=== PATIENT | female | born 1945 | race Caucasian/White ===

== ENCOUNTER → 2016-07-08 | Outpatient (CLI) | payer MEDICARE ==
[~2016-07-08] MED LIST: ACET-1757 PO; ACID1GRA2 PO; ALPR0.5T6 PO; AMLO5TAB2 PO; ATOR40TA78 PO; BILBERRY PO; BIOT10004 PO; BISA10SU2 PR; CARV12.52 PO; CARV3.122 PO; CLOP75TA PO; CYAN100028 PO; DOCU100C8 PO; DOXA2TAB9 PO; ERGO500017 PO; FERR324T18 PO; FERR325T16 PO; FURO-92 PO; FURO-93 PO; FURO20TA3 PO; FURO40TA6 PO; GLIM1TAB PO; GLIM2TAB2 PO; GLIP5TAB10 PO; HEPA500024 SC; HYDR-3138 PO; HYDR-3343 PO; INSU100V5 SQ-INSULIN; LABE100T3 PO; LABE300T PO; LINE600T37 PO; LISI40TA PO; LOSA100T6 PO; MAGN250T8 PO; MAGN400T26 PO; MAGNESIUM PO; METF10002 PO; METH32TA PO; METH4TAB2 PO; OMEP-110 PO; OXYC5TAB3 PO; POLY17PO5 PO; POTA10TA PO; POTA20PA PO; PRED5TAB PO; PRED5TAB27 PO; PYRI100T2 PO; SODI650T PO; UBID100C24 PO; VANC1VIA3 IV; VITA10004 PO
== END | disposition home or self-care (01) ==
LOC: RAD 10:02
PROVIDERS: ATTEND Otolaryngology
DX: J95.5 Postprocedural subglottic stenosis (principal); I65.29 Occlusion and stenosis of unspecified carotid artery
CPT/HCPCS: 70490

== ENCOUNTER → 2016-10-22 | Outpatient (CLI) | payer MEDICARE | END | disposition home or self-care (01) | LOC: CFH 14:42 | PROVIDERS: ATTEND Podiatrist Foot & Ankle Surgery | DX: Z00.01 Encounter for general adult medical examination with abnormal findings (principal); R79.89 Other specified abnormal findings of blood chemistry | CPT/HCPCS: 36415; 85025; 85651; 86140 ==

== ENCOUNTER → 2016-10-22 | Outpatient (CLI) | payer MEDICARE | END | disposition home or self-care (01) | LOC: WOUND 12:44 | PROVIDERS: ATTEND Podiatrist Foot & Ankle Surgery | DX: E11.621 Type 2 diabetes mellitus with foot ulcer (principal); L97.521 Non-pressure chronic ulcer of other part of left foot limited to breakdown of skin; L97.511 Non-pressure chronic ulcer of other part of right foot limited to breakdown of skin; E11.40 Type 2 diabetes mellitus with diabetic neuropathy, unspecified; E11.51 Type 2 diabetes mellitus with diabetic peripheral angiopathy without gangrene; E78.5 Hyperlipidemia, unspecified; I11.0 Hypertensive heart disease with heart failure; I50.30 Unspecified diastolic (congestive) heart failure; E11.69 Type 2 diabetes mellitus with other specified complication; M86.171 Other acute osteomyelitis, right ankle and foot; M19.071 Primary osteoarthritis, right ankle and foot | CPT/HCPCS: 11043; 11044; G0463; WOU0463 ==

== ENCOUNTER → 2016-10-26 | Outpatient (CLI) | payer MEDICARE | END | disposition home or self-care (01) | LOC: RAD 09:09 | PROVIDERS: ATTEND Physician Assistant | DX: M19.071 Primary osteoarthritis, right ankle and foot (principal); S91.101A Unspecified open wound of right great toe without damage to nail, initial encounter; E11.69 Type 2 diabetes mellitus with other specified complication; M25.771 Osteophyte, right ankle; X58.XXXA Exposure to other specified factors, initial encounter; Y93.89 Activity, other specified; Y92.89 Other specified places as the place of occurrence of the external cause; Y99.8 Other external cause status ==

== ENCOUNTER → 2016-10-29 | Outpatient (CLI) | payer MEDICARE | END | disposition home or self-care (01) | LOC: WOUND 10:30 | PROVIDERS: ATTEND Podiatrist Foot & Ankle Surgery | DX: E11.621 Type 2 diabetes mellitus with foot ulcer (principal); L97.511 Non-pressure chronic ulcer of other part of right foot limited to breakdown of skin; L97.521 Non-pressure chronic ulcer of other part of left foot limited to breakdown of skin; E11.69 Type 2 diabetes mellitus with other specified complication; M86.171 Other acute osteomyelitis, right ankle and foot; E11.40 Type 2 diabetes mellitus with diabetic neuropathy, unspecified; I11.0 Hypertensive heart disease with heart failure; I50.30 Unspecified diastolic (congestive) heart failure; E11.51 Type 2 diabetes mellitus with diabetic peripheral angiopathy without gangrene; E78.5 Hyperlipidemia, unspecified; I25.10 Atherosclerotic heart disease of native coronary artery without angina pectoris; M19.071 Primary osteoarthritis, right ankle and foot; Z86.711 Personal history of pulmonary embolism | CPT/HCPCS: 11044; 97597 ==

== ENCOUNTER → 2016-10-29 | Outpatient (CLI) | payer MEDICARE | END | disposition home or self-care (01) | LOC: CFH 12:22 | PROVIDERS: ATTEND Podiatrist Foot & Ankle Surgery | DX: M86.171 Other acute osteomyelitis, right ankle and foot (principal); E11.9 Type 2 diabetes mellitus without complications | CPT/HCPCS: 71020 ==

== ENCOUNTER → 2016-11-03 | Outpatient (CLI) | payer MEDICARE | END | disposition home or self-care (01) | LOC: WOUND 12:59 | PROVIDERS: ATTEND Nurse Practitioner Family | DX: E11.621 Type 2 diabetes mellitus with foot ulcer (principal); L97.511 Non-pressure chronic ulcer of other part of right foot limited to breakdown of skin; L97.521 Non-pressure chronic ulcer of other part of left foot limited to breakdown of skin; E11.69 Type 2 diabetes mellitus with other specified complication; M86.08 Acute hematogenous osteomyelitis, other sites; E11.22 Type 2 diabetes mellitus with diabetic chronic kidney disease; I13.0 Hypertensive heart and chronic kidney disease with heart failure and stage 1 through stage 4 chronic kidney disease, or unspecified chronic kidney disease; N18.4 Chronic kidney disease, stage 4 (severe); I50.30 Unspecified diastolic (congestive) heart failure; E11.40 Type 2 diabetes mellitus with diabetic neuropathy, unspecified; E11.51 Type 2 diabetes mellitus with diabetic peripheral angiopathy without gangrene; E78.5 Hyperlipidemia, unspecified; I25.10 Atherosclerotic heart disease of native coronary artery without angina pectoris; E11.21 Type 2 diabetes mellitus with diabetic nephropathy; Z86.711 Personal history of pulmonary embolism; M19.071 Primary osteoarthritis, right ankle and foot | CPT/HCPCS: 11044; 87070; 87205 ==

== ENCOUNTER → 2016-11-03 | Outpatient (CLI) | payer MEDICARE ==
[2016-11-03 15:27] LABS: ASPARTATE AMINO TRANSFERASE 16 U/L (15-37); BLOOD UREA NITROGEN 62 mg/dL (7-18); C-REACTIVE PROTEIN, QUANT 0.42 mg/dL (0.02-0.49)
== END | disposition home or self-care (01) ==
LOC: CFH 14:15
PROVIDERS: ATTEND Nurse Practitioner Family
DX: M86.171 Other acute osteomyelitis, right ankle and foot (principal); E11.69 Type 2 diabetes mellitus with other specified complication; L03.039 Cellulitis of unspecified toe
CPT/HCPCS: 36415; 80053; 82550; 85025; 85651; 86140

== ENCOUNTER 2016-11-09 06:25 | Day surgery (SDC) | payer MEDICARE ==
[~2016-11-09] VITALS: Ht 167.6 cm; Wt 75.9 kg
[2016-11-09] MEDS ORDERED: CEFAZOLIN 1,000 MG IVPB ONE (07:30)
[2016-11-09 07:31] VITALS: BP 158/64
[2016-11-09] MEDS: CEFAZOLIN PMX 1GM/50ML 50 ML IVPB ONE ×2 (07:54→08:06)
[2016-11-09] MEDS ORDERED: PLEASE ENTER HEIGHT AND WEIGHT MC SCH (08:00)
[2016-11-09] MEDS: SODIUM CHLORIDE 0.9% 1,000 ML IV SCH ×2 (08:06→08:10)
[2016-11-09] MEDS ORDERED: FENTANYL PF 100 MCG/2ML ONE (08:33)
[2016-11-09] MEDS ORDERED: MIDAZOLAM 1 MG/ML, 5ML ONE (08:33)
[2016-11-09] MEDS ORDERED: NALOXONE 1 MG/ML, 2ML ONE (08:34)
[2016-11-09] MEDS ORDERED: FLUMAZENIL 0.1 MG/1 ML, 5ML ONE (08:34)
[2016-11-09] MEDS ORDERED: LIDOCAINE 1%, 20ML ONE (08:52)
[2016-11-09] MEDS ORDERED: CEFAZOLIN PMX 1GM/50ML 50 ML IV ONE (09:00)
== END 2016-11-09 10:45 ==
LOC: OUT 06:25
PROVIDERS: ATTEND Internal Medicine Infectious Disease
DX: Z45.2 Encounter for adjustment and management of vascular access device (principal); M86.28 Subacute osteomyelitis, other site; I27.2 Other secondary pulmonary hypertension; E11.22 Type 2 diabetes mellitus with diabetic chronic kidney disease; N18.9 Chronic kidney disease, unspecified; Z79.2 Long term (current) use of antibiotics; I12.9 Hypertensive chronic kidney disease with stage 1 through stage 4 chronic kidney disease, or unspecified chronic kidney disease; Z88.5 Allergy status to narcotic agent; Z86.14 Personal history of Methicillin resistant Staphylococcus aureus infection
CPT/HCPCS: 36558; 76937; 77001; 99156; 99157; C1751; J0690; J2250; J3010; J3490; J7030; J2310

== ENCOUNTER → 2016-11-12 | Outpatient (CLI) | payer MEDICARE | END | disposition home or self-care (01) | LOC: WOUND 09:20 | PROVIDERS: ATTEND Podiatrist Foot & Ankle Surgery | DX: E11.621 Type 2 diabetes mellitus with foot ulcer (principal); L97.521 Non-pressure chronic ulcer of other part of left foot limited to breakdown of skin; L97.511 Non-pressure chronic ulcer of other part of right foot limited to breakdown of skin; E11.69 Type 2 diabetes mellitus with other specified complication; M86.08 Acute hematogenous osteomyelitis, other sites; E11.40 Type 2 diabetes mellitus with diabetic neuropathy, unspecified; E11.22 Type 2 diabetes mellitus with diabetic chronic kidney disease; I13.0 Hypertensive heart and chronic kidney disease with heart failure and stage 1 through stage 4 chronic kidney disease, or unspecified chronic kidney disease; N18.4 Chronic kidney disease, stage 4 (severe); I50.30 Unspecified diastolic (congestive) heart failure; E11.51 Type 2 diabetes mellitus with diabetic peripheral angiopathy without gangrene; E78.5 Hyperlipidemia, unspecified; I25.10 Atherosclerotic heart disease of native coronary artery without angina pectoris; M19.071 Primary osteoarthritis, right ankle and foot; E11.21 Type 2 diabetes mellitus with diabetic nephropathy; Z79.2 Long term (current) use of antibiotics; Z86.711 Personal history of pulmonary embolism | CPT/HCPCS: 11042; 97597 ==

== ENCOUNTER → 2016-11-19 | Outpatient (CLI) | payer MEDICARE ==
[~2016-11-19] MED LIST changes: -ACID1GRA2 PO; +ACID1GRA3 PO; +DOCU100C33 PO; -DOCU100C8 PO; -HYDR-3138 PO; +HYDR-3237 PO
== END | disposition home or self-care (01) ==
LOC: WOUND 09:31
PROVIDERS: ATTEND Podiatrist Foot & Ankle Surgery
DX: E11.621 Type 2 diabetes mellitus with foot ulcer (principal); L97.511 Non-pressure chronic ulcer of other part of right foot limited to breakdown of skin; I25.10 Atherosclerotic heart disease of native coronary artery without angina pectoris; E11.21 Type 2 diabetes mellitus with diabetic nephropathy; E11.40 Type 2 diabetes mellitus with diabetic neuropathy, unspecified; E11.51 Type 2 diabetes mellitus with diabetic peripheral angiopathy without gangrene; E11.69 Type 2 diabetes mellitus with other specified complication; M86.08 Acute hematogenous osteomyelitis, other sites; M86.171 Other acute osteomyelitis, right ankle and foot; E78.5 Hyperlipidemia, unspecified; E11.22 Type 2 diabetes mellitus with diabetic chronic kidney disease; I13.0 Hypertensive heart and chronic kidney disease with heart failure and stage 1 through stage 4 chronic kidney disease, or unspecified chronic kidney disease; N18.4 Chronic kidney disease, stage 4 (severe); I50.30 Unspecified diastolic (congestive) heart failure; M19.071 Primary osteoarthritis, right ankle and foot; Z86.14 Personal history of Methicillin resistant Staphylococcus aureus infection; Z79.2 Long term (current) use of antibiotics
CPT/HCPCS: 11044

== ENCOUNTER → 2016-11-26 | Outpatient (CLI) | payer MEDICARE | END | disposition home or self-care (01) | LOC: WOUND 09:30 | PROVIDERS: ATTEND Podiatrist Foot & Ankle Surgery | DX: E11.621 Type 2 diabetes mellitus with foot ulcer (principal); L97.511 Non-pressure chronic ulcer of other part of right foot limited to breakdown of skin; E11.21 Type 2 diabetes mellitus with diabetic nephropathy; E11.69 Type 2 diabetes mellitus with other specified complication; M86.08 Acute hematogenous osteomyelitis, other sites; M86.171 Other acute osteomyelitis, right ankle and foot; I25.10 Atherosclerotic heart disease of native coronary artery without angina pectoris; E78.5 Hyperlipidemia, unspecified; E11.22 Type 2 diabetes mellitus with diabetic chronic kidney disease; I13.0 Hypertensive heart and chronic kidney disease with heart failure and stage 1 through stage 4 chronic kidney disease, or unspecified chronic kidney disease; N18.4 Chronic kidney disease, stage 4 (severe); I50.30 Unspecified diastolic (congestive) heart failure; E11.40 Type 2 diabetes mellitus with diabetic neuropathy, unspecified; M19.071 Primary osteoarthritis, right ankle and foot; E11.51 Type 2 diabetes mellitus with diabetic peripheral angiopathy without gangrene; Z99.2 Dependence on renal dialysis; Z86.14 Personal history of Methicillin resistant Staphylococcus aureus infection; Z86.711 Personal history of pulmonary embolism; Z79.4 Long term (current) use of insulin | CPT/HCPCS: 97597 ==

== ENCOUNTER → 2016-12-03 | Outpatient (CLI) | payer MEDICARE | END | disposition home or self-care (01) | LOC: WOUND 09:30 | PROVIDERS: ATTEND Podiatrist Foot & Ankle Surgery | DX: E11.621 Type 2 diabetes mellitus with foot ulcer (principal); L97.511 Non-pressure chronic ulcer of other part of right foot limited to breakdown of skin; E11.69 Type 2 diabetes mellitus with other specified complication; M86.08 Acute hematogenous osteomyelitis, other sites; M86.172 Other acute osteomyelitis, left ankle and foot; I25.10 Atherosclerotic heart disease of native coronary artery without angina pectoris; E11.22 Type 2 diabetes mellitus with diabetic chronic kidney disease; I13.0 Hypertensive heart and chronic kidney disease with heart failure and stage 1 through stage 4 chronic kidney disease, or unspecified chronic kidney disease; N18.4 Chronic kidney disease, stage 4 (severe); I50.30 Unspecified diastolic (congestive) heart failure; E78.5 Hyperlipidemia, unspecified; M19.071 Primary osteoarthritis, right ankle and foot; E11.21 Type 2 diabetes mellitus with diabetic nephropathy; E11.40 Type 2 diabetes mellitus with diabetic neuropathy, unspecified; E11.51 Type 2 diabetes mellitus with diabetic peripheral angiopathy without gangrene; Z79.2 Long term (current) use of antibiotics; Z86.14 Personal history of Methicillin resistant Staphylococcus aureus infection; Z86.711 Personal history of pulmonary embolism; Z99.2 Dependence on renal dialysis; Z79.4 Long term (current) use of insulin | CPT/HCPCS: 11720 ==

== ENCOUNTER 2016-12-29 06:17 | Day surgery (SDC) | payer MEDICARE ==
[~2016-12-29] VITALS: Ht 167.6 cm; Wt 79.3 kg
[2016-12-29 07:17] VITALS: BP 171/73
[2016-12-29] MEDS ORDERED: SODIUM CHLORIDE 0.9% 1,000 ML IV SCH (07:22)
[2016-12-29] MEDS ORDERED: FENTANYL PF 100 MCG/2ML ONE (07:58)
[2016-12-29] MEDS ORDERED: MIDAZOLAM 1 MG/ML, 5ML ONE ×2 (07:58)
[2016-12-29] MEDS ORDERED: FLUMAZENIL 0.1 MG/1 ML, 5ML ONE (07:59)
[2016-12-29] MEDS ORDERED: NALOXONE 1 MG/ML, 2ML ONE (07:59)
[2016-12-29] MEDS ORDERED: LIDOCAINE 1%, 20ML ONE (08:13)
== END 2016-12-29 11:15 ==
LOC: OUT 06:17
PROVIDERS: ATTEND Internal Medicine Nephrology
DX: I12.9 Hypertensive chronic kidney disease with stage 1 through stage 4 chronic kidney disease, or unspecified chronic kidney disease (principal); E11.22 Type 2 diabetes mellitus with diabetic chronic kidney disease; N18.9 Chronic kidney disease, unspecified; N17.9 Acute kidney failure, unspecified; R80.9 Proteinuria, unspecified; F41.9 Anxiety disorder, unspecified; E78.5 Hyperlipidemia, unspecified; Z98.890 Other specified postprocedural states
CPT/HCPCS: 36415; 50200; 77012; 82962; 85610; 88300; 99156; 99157; J2250; J3010; J3490; J2310

== ENCOUNTER 2017-01-02 15:35 | Inpatient (IN) | payer MEDICARE ==
[2017-01-02] VITALS (10 sets, daily range): BP systolic 157–178; BP diastolic 45–74
[~2017-01-02] VITALS: Ht 167.6 cm; Wt 82.5 kg
[2017-01-02] MEDS ORDERED: SODIUM CHLORIDE FLUSH 10ML SYR IVF ONE (16:30)
[2017-01-02] MEDS ORDERED: SODIUM CHLORIDE 0.9% 1,000ML IVBOLUS ONE (16:30)
[2017-01-02 16:44] LABS: WHITE BLOOD COUNT 12.5 x10^3/uL (3.4-10)
[2017-01-02 16:45] LABS: HEMOGLOBIN 6.2 g/dL (11.7-16.4)
[2017-01-02 16:47] LABS: ASPARTATE AMINO TRANSFERASE 27 U/L (15-37); BLOOD UREA NITROGEN 76 mg/dL (7-18)
[2017-01-02 16:53] LABS: IS PT STATUS REG ER OR PRE ER? YES
[2017-01-02 17:03] LABS: POLYCHROMASIA 1+; SPHEROCYTES 1+
[2017-01-02] MEDS ORDERED: FUROSEMIDE 20 MG/2 ML IV ONE (20:00)
[2017-01-02] MEDS ORDERED: LABETALOL 5MG/ML, 20ML IVPush PRN (20:00)
[2017-01-02] MEDS ORDERED: ACETAMINOPHEN 325 MG TABLET PO PRN (20:00)
[2017-01-02] MEDS ORDERED: TEMAZEPAM 15 MG CAPSULE PO PRN (20:00)
[2017-01-02] MEDS ORDERED: DOCUSATE 100 MG CAPSULE PO PRN (20:00)
[2017-01-02] MEDS: INSULIN ASPART 100 UNITS/ML, PEN SQ-INSULIN SCH (20:56)
[2017-01-02 22:47] LABS: IS PT STATUS REG ER OR PRE ER? NO
[2017-01-03 00:15] VITALS: BP 151/64
[2017-01-03 02:19] LABS: HEMATOCRIT 23.6 % (34.6-47.8); WHITE BLOOD COUNT 11.9 x10^3/uL (3.4-10)
[2017-01-03 03:02] VITALS: BP 161/56
[2017-01-03 04:58] LABS: HEMOGLOBIN 7.9 g/dL (11.7-16.4); WHITE BLOOD COUNT 11.4 x10^3/uL (3.4-10)
[2017-01-03 05:04] LABS: BLOOD UREA NITROGEN 82 mg/dL (7-18); TOTAL IRON BINDING CAPACITY 165 mcg/dL (250-450)
[2017-01-03 05:09] LABS: IS PT STATUS REG ER OR PRE ER? NO
[2017-01-03 05:30] LABS: FERRITIN 513.7 ng/mL (8-252)
[2017-01-03 06:40] VITALS: BP 165/67
[2017-01-03] MEDS: INSULIN ASPART 100 UNITS/ML, PEN SQ-INSULIN SCH ×4 (07:00→21:18)
[2017-01-03] MEDS ORDERED: LABETALOL 300 MG TABLET PO SCH (09:30)
[2017-01-03] MEDS ORDERED: CLOPIDOGREL 75 MG TABLET PO ONE (11:00)
[2017-01-03] MEDS ORDERED: CLOPIDOGREL 75 MG TABLET ONE (12:21)
[2017-01-03 12:26] VITALS: BP 172/74
[2017-01-03 13:45] LABS: C-REACTIVE PROTEIN, QUANT 8.9 mg/dL (0.02-0.49)
[2017-01-03 14:07] VITALS: BP 170/76
[2017-01-03] MEDS: ISOSORBIDE DINITRATE 10 MG TABLET PO SCH ×2 (14:07→21:15)
[2017-01-03] MEDS: ERTAPENEM 0.5 GM in SODIUM CHLORIDE 0.9% 50 ML IV SCH (14:07)
[2017-01-03 14:29] LABS: IS PT STATUS REG ER OR PRE ER? NO
[2017-01-03] MEDS ORDERED: ARANESP 100 MCG/ML **ESRD SQ SCH (14:30)
[2017-01-03 14:32] LABS: FERRITIN 646.6 ng/mL (8-252)
[2017-01-03 14:43] LABS: PTH INTACT INTERPRETATION ** Comment **
[2017-01-03] MEDS: SODIUM CHLORIDE 0.9% IVPB SCH (15:22)
[2017-01-03] MEDS: DAPTOMYCIN IVPB SCH (15:22)
[2017-01-03 15:27] LABS: PARATHYROID HORMONE INTACT 341.8 pg/mL (14-72)
[2017-01-03] MEDS ORDERED: ISOSORBIDE DINITRATE 10 MG TABLET PO SCH (16:00)
[2017-01-03 20:40] VITALS: BP 154/84
[2017-01-03] MEDS ORDERED: LABETALOL 100 MG TABLET PO SCH (21:00)
[2017-01-03] MEDS: ATORVASTATIN 40 MG TABLET PO SCH ×2 (21:00→21:16)
[2017-01-03] MEDS: SODIUM BICARBONATE 650 MG TABLET PO SCH (21:15)
[2017-01-03] MEDS: AMLODIPINE 5 MG TABLET PO SCH (21:16)
[2017-01-04] VITALS (7 sets, daily range): BP systolic 119–161; BP diastolic 59–76
[2017-01-04 04:58] LABS: HEMOGLOBIN 7.9 g/dL (11.7-16.4); WHITE BLOOD COUNT 9.2 x10^3/uL (3.4-10)
[2017-01-04 05:08] LABS: HEMATOCRIT 22.9 % (34.6-47.8)
[2017-01-04 05:17] LABS: ASPARTATE AMINO TRANSFERASE 26 U/L (15-37); BLOOD UREA NITROGEN 77 mg/dL (7-18)
[2017-01-04] MEDS: ISOSORBIDE DINITRATE 10 MG TABLET PO SCH ×3 (06:03→20:48)
[2017-01-04] MEDS: INSULIN ASPART 100 UNITS/ML, PEN SQ-INSULIN SCH ×4 (07:00→20:48)
[2017-01-04] MEDS: LABETALOL 300 MG TABLET PO SCH (08:46)
[2017-01-04] MEDS: AMLODIPINE 5 MG TABLET PO SCH ×2 (08:46→20:48)
[2017-01-04] MEDS: SODIUM BICARBONATE 650 MG TABLET PO SCH (08:47)
[2017-01-04] MEDS ORDERED: CLOPIDOGREL 75 MG TABLET PO SCH ×2 (09:00)
[2017-01-04] MEDS ORDERED: morphine SULFATE 10 MG/ML, 1ML IVPush ONE (15:00)
[2017-01-04] MEDS: CALCITRIOL 0.25 MCG CAPSULE PO SCH (15:11)
[2017-01-04] MEDS: ERTAPENEM 0.5 GM in SODIUM CHLORIDE 0.9% 50 ML IV SCH (15:12)
[2017-01-04] MEDS: ATORVASTATIN 40 MG TABLET PO SCH (20:48)
[2017-01-04] MEDS: LABETALOL 100 MG TABLET PO SCH (21:00)
[2017-01-05 01:46] VITALS: BP 154/70
[2017-01-05 04:53] LABS: HEMATOCRIT 23.2 % (34.6-47.8); HEMOGLOBIN 7.9 g/dL (11.7-16.4); WHITE BLOOD COUNT 8.6 x10^3/uL (3.4-10)
[2017-01-05 05:05] LABS: BLOOD UREA NITROGEN 72 mg/dL (7-18)
[2017-01-05 05:09] LABS: ASPARTATE AMINO TRANSFERASE 18 U/L (15-37)
[2017-01-05] MEDS: ISOSORBIDE DINITRATE 10 MG TABLET PO SCH ×3 (05:22→20:44)
[2017-01-05] MEDS: INSULIN ASPART 100 UNITS/ML, PEN SQ-INSULIN SCH ×4 (07:51→20:38)
[2017-01-05 08:06] VITALS: BP 152/70
[2017-01-05] MEDS: CALCITRIOL 0.25 MCG CAPSULE PO SCH (08:19)
[2017-01-05] MEDS: LABETALOL 300 MG TABLET PO SCH (08:19)
[2017-01-05] MEDS: AMLODIPINE 5 MG TABLET PO SCH ×2 (08:19→20:42)
[2017-01-05] MEDS: ERTAPENEM 0.5 GM in SODIUM CHLORIDE 0.9% 50 ML IV SCH ×2 (16:45→18:09)
[2017-01-05 16:59] VITALS: BP 162/66
[2017-01-05 20:19] VITALS: BP 190/78
[2017-01-05] MEDS: DAPTOMYCIN IVPB SCH (20:32)
[2017-01-05] MEDS: SODIUM CHLORIDE 0.9% IVPB SCH (20:32)
[2017-01-05] MEDS: ATORVASTATIN 40 MG TABLET PO SCH (20:43)
[2017-01-05] MEDS: LABETALOL 100 MG TABLET PO SCH (20:43)
[2017-01-06 01:15] VITALS: BP 168/66
[2017-01-06 04:42] LABS: HEMATOCRIT 23.8 % (34.6-47.8); HEMOGLOBIN 8.2 g/dL (11.7-16.4); WHITE BLOOD COUNT 7.9 x10^3/uL (3.4-10)
[2017-01-06 04:56] LABS: BLOOD UREA NITROGEN 47 mg/dL (7-18)
[2017-01-06 05:02] LABS: ASPARTATE AMINO TRANSFERASE 14 U/L (15-37)
[2017-01-06] MEDS: INSULIN ASPART 100 UNITS/ML, PEN SQ-INSULIN SCH ×4 (06:17→20:57)
[2017-01-06] MEDS: ISOSORBIDE DINITRATE 10 MG TABLET PO SCH ×3 (06:21→20:57)
[2017-01-06] MEDS: LABETALOL 300 MG TABLET PO SCH (08:30)
[2017-01-06] MEDS: AMLODIPINE 5 MG TABLET PO SCH ×2 (08:30→20:58)
[2017-01-06] MEDS: CALCITRIOL 0.25 MCG CAPSULE PO SCH (08:30)
[2017-01-06 08:31] VITALS: BP 169/67
[2017-01-06 08:53] VITALS: BP 150/69
[2017-01-06 10:18] LABS: ANA SCREEN NEGATIVE (Negative)
[2017-01-06 13:20] VITALS: BP 119/51
[2017-01-06 19:43] VITALS: BP 157/72
[2017-01-06] MEDS: ATORVASTATIN 40 MG TABLET PO SCH (20:58)
[2017-01-06] MEDS: LABETALOL 100 MG TABLET PO SCH (20:58)
[2017-01-07 03:29] VITALS: BP 131/69
[2017-01-07 04:57] LABS: HEMATOCRIT 25.6 % (34.6-47.8); HEMOGLOBIN 8.6 g/dL (11.7-16.4); WHITE BLOOD COUNT 8.4 x10^3/uL (3.4-10)
[2017-01-07 05:10] LABS: BLOOD UREA NITROGEN 35 mg/dL (7-18)
[2017-01-07 05:14] LABS: ASPARTATE AMINO TRANSFERASE 14 U/L (15-37)
[2017-01-07] MEDS: INSULIN ASPART 100 UNITS/ML, PEN SQ-INSULIN SCH ×4 (06:02→21:00)
[2017-01-07] MEDS: ISOSORBIDE DINITRATE 10 MG TABLET PO SCH ×3 (06:04→21:45)
[2017-01-07 07:31] VITALS: BP 107/59
[2017-01-07] MEDS: LABETALOL 300 MG TABLET PO SCH (07:32)
[2017-01-07] MEDS: CALCITRIOL 0.25 MCG CAPSULE PO SCH (07:32)
[2017-01-07] MEDS: AMLODIPINE 5 MG TABLET PO SCH ×2 (07:32→21:45)
[2017-01-07] MEDS ORDERED: FENTANYL PF 100 MCG/2ML ONE (13:12)
[2017-01-07] MEDS ORDERED: CEFAZOLIN 1,000 MG ONE (13:12)
[2017-01-07] MEDS ORDERED: SUCCINYLCHOLINE 20 MG/ML, 10ML ONE (13:12)
[2017-01-07] MEDS ORDERED: ONDANSETRON 2MG/ML, 2ML ONE (13:12)
[2017-01-07] MEDS ORDERED: GLYCOPYRROLATE 0.2MG/1ML, 5ML ONE (13:12)
[2017-01-07] MEDS ORDERED: ROCURONIUM 10 MG/ML ONE (13:12)
[2017-01-07] MEDS ORDERED: HYDROmorphone 1 MG/ML, 1ML ONE (13:12)
[2017-01-07] MEDS ORDERED: PROPOFOL 10 MG/ML, 20ML ONE (13:12)
[2017-01-07] MEDS ORDERED: MIDAZOLAM 1 MG/ML, 2ML ONE (13:12)
[2017-01-07] MEDS ORDERED: NEOSTIGMINE 1 MG/ML, 10ML ONE (13:12)
[2017-01-07] MEDS ORDERED: DEXAMETHASONE 4 MG/ML, 1ML ONE (13:12)
[2017-01-07 13:53] VITALS: BP 160/73
[2017-01-07] MEDS ORDERED: BUPIVACAINE/PF 0.5% ONE (13:54)
[2017-01-07] MEDS ORDERED: HEPARIN 1,000 UNITS/ML, 10ML ONE ×2 (13:55→16:16)
[2017-01-07] MEDS ORDERED: EPINEPHRINE 1 MG/ML, 1ML ONE (13:55)
[2017-01-07] MEDS ORDERED: THROMBIN 5,000 UNIT VIAL TP ONE (13:55)
[2017-01-07] MEDS ORDERED: PROTAMINE SULFATE 10 MG/ML, 5ML ONE (13:55)
[2017-01-07] MEDS ORDERED: VASOPRESSIN 20 UNIT/ML, 1ML ONE (15:15)
[2017-01-07] MEDS ORDERED: OXYcodone 5 MG/5 ML ORAL.SOL UDC PO PRN (16:00)
[2017-01-07] MEDS ORDERED: LABETALOL 5MG/ML, 20ML IV PRN (16:00)
[2017-01-07] MEDS ORDERED: FENTANYL PF 100 MCG/2ML IV PRN (16:00)
[2017-01-07] MEDS ORDERED: ONDANSETRON 2MG/ML, 2ML IVPush PRN (16:00)
[2017-01-07] MEDS ORDERED: HYDROmorphone 1 MG/ML, 1ML IV PRN (16:00)
[2017-01-07] MEDS ORDERED: HYDROcodone/APAP 7.5-325MG/15ML UDC PO PRN (16:00)
[2017-01-07 18:39] VITALS: BP 167/71
[2017-01-07] MEDS: LABETALOL 100 MG TABLET PO SCH (20:48)
[2017-01-07] MEDS: ATORVASTATIN 40 MG TABLET PO SCH (21:45)
[2017-01-08 02:26] VITALS: BP 133/55
[2017-01-08 05:36] LABS: HEMOGLOBIN 9.4 g/dL (11.7-16.4); WHITE BLOOD COUNT 10.7 x10^3/uL (3.4-10)
[2017-01-08 05:43] LABS: BLOOD UREA NITROGEN 50 mg/dL (7-18)
[2017-01-08 05:48] VITALS: BP 158/62
[2017-01-08] MEDS: ISOSORBIDE DINITRATE 10 MG TABLET PO SCH ×3 (05:49→20:59)
[2017-01-08 08:35] VITALS: BP 139/59
[2017-01-08] MEDS: CALCITRIOL 0.25 MCG CAPSULE PO SCH (08:42)
[2017-01-08] MEDS: INSULIN ASPART 100 UNITS/ML, PEN SQ-INSULIN SCH ×4 (08:42→20:59)
[2017-01-08] MEDS: AMLODIPINE 5 MG TABLET PO SCH ×2 (09:00→20:58)
[2017-01-08] MEDS: INSULIN DETEMIR 100 UNITS/ML, PEN SQ-INSULIN SCH ×2 (09:30→20:48)
[2017-01-08] MEDS: LABETALOL 300 MG TABLET PO SCH (12:05)
[2017-01-08 13:31] VITALS: BP 142/62
[2017-01-08 20:50] VITALS: BP 130/56
[2017-01-08] MEDS: ATORVASTATIN 40 MG TABLET PO SCH (20:58)
[2017-01-08] MEDS: LABETALOL 100 MG TABLET PO SCH (22:02)
[2017-01-09 02:30] VITALS: BP 118/49
[2017-01-09 05:24] LABS: HEMOGLOBIN 8.7 g/dL (11.7-16.4); WHITE BLOOD COUNT 12.6 x10^3/uL (3.4-10)
[2017-01-09] MEDS: ISOSORBIDE DINITRATE 10 MG TABLET PO SCH ×2 (05:33→14:05)
[2017-01-09 05:39] LABS: BLOOD UREA NITROGEN 45 mg/dL (7-18)
[2017-01-09 05:44] LABS: ASPARTATE AMINO TRANSFERASE 14 U/L (15-37)
[2017-01-09] MEDS: INSULIN ASPART 100 UNITS/ML, PEN SQ-INSULIN SCH ×2 (07:00→11:00)
[2017-01-09 07:01] VITALS: BP 120/53
[2017-01-09] MEDS: AMLODIPINE 5 MG TABLET PO SCH (08:49)
[2017-01-09] MEDS: CALCITRIOL 0.25 MCG CAPSULE PO SCH (08:49)
[2017-01-09] MEDS: LABETALOL 300 MG TABLET PO SCH (08:50)
[2017-01-09] MEDS: INSULIN DETEMIR 100 UNITS/ML, PEN SQ-INSULIN SCH (09:30)
[2017-01-09] MEDS ORDERED: CALC0.25 PO (10:26)
[2017-01-09] MEDS ORDERED: AMLO5TAB2 PO (10:26)
[2017-01-09] MEDS ORDERED: ISOS10TA2 PO (10:26)
[2017-01-09] MEDS ORDERED: HYDR-3341 PO (10:26)
[2017-01-09 14:21] VITALS: BP 118/53
== END 2017-01-09 15:22 | disposition home or self-care (01) | DRG 673 ==
LOC: ED 17:05 → EDIP 17:10 → 3NW 18:19 → 5SO 01-03 10:06 → 4WST 01-07 18:26
PROVIDERS: ADMIT Internal Medicine; ATTEND Internal Medicine
PROC: 30233N1 Transfusion of Nonautologous Red Blood Cells into Peripheral Vein, Percutaneous Approach (ICD-10-PCS; principal; 2017-01-02)
PROC: 02HV33Z Insertion of Infusion Device into Superior Vena Cava, Percutaneous Approach (ICD-10-PCS; 2017-01-04)
PROC: 02PY33Z Removal of Infusion Device from Great Vessel, Percutaneous Approach (ICD-10-PCS; 2017-01-07)
PROC: 0JH63XZ Insertion of Tunneled Vascular Access Device into Chest Subcutaneous Tissue and Fascia, Percutaneous Approach (ICD-10-PCS; 2017-01-07)
PROC: 02HV33Z Insertion of Infusion Device into Superior Vena Cava, Percutaneous Approach (ICD-10-PCS; 2017-01-07)
PROC: 03180ZD Bypass Left Brachial Artery to Upper Arm Vein, Open Approach (ICD-10-PCS; 2017-01-07 14:30)
DX: N17.9 Acute kidney failure, unspecified (principal); J96.00 Acute respiratory failure, unspecified whether with hypoxia or hypercapnia; E43 Unspecified severe protein-calorie malnutrition; I13.2 Hypertensive heart and chronic kidney disease with heart failure and with stage 5 chronic kidney disease, or end stage renal disease; M86.171 Other acute osteomyelitis, right ankle and foot; Z93.0 Tracheostomy status; D62 Acute posthemorrhagic anemia; E87.2 Acidosis; I50.32 Chronic diastolic (congestive) heart failure; N18.6 End stage renal disease; R13.10 Dysphagia, unspecified; D63.1 Anemia in chronic kidney disease; E11.51 Type 2 diabetes mellitus with diabetic peripheral angiopathy without gangrene; E11.621 Type 2 diabetes mellitus with foot ulcer; E11.69 Type 2 diabetes mellitus with other specified complication; E78.5 Hyperlipidemia, unspecified; I65.29 Occlusion and stenosis of unspecified carotid artery; H35.30 Unspecified macular degeneration; I16.0 Hypertensive urgency; I34.0 Nonrheumatic mitral (valve) insufficiency; K21.9 Gastro-esophageal reflux disease without esophagitis; L97.519 Non-pressure chronic ulcer of other part of right foot with unspecified severity; Z83.1 Family history of other infectious and parasitic diseases; Z83.3 Family history of diabetes mellitus; Z86.14 Personal history of Methicillin resistant Staphylococcus aureus infection; E11.21 Type 2 diabetes mellitus with diabetic nephropathy
CPT/HCPCS: 36415; 36556; 71020; 74150; 76937; 77001; 80048; 80053; 80061; 80069; 80074; 81001; 82306; 82310; 82550; 82607; 82728; 82746; 82962; 83036; 83540; 83550; 83605; 83735; 83880; 83970; 84100; 84439; 84443; 84484; 84550; 85025; 85027; 85045; 85610; 85651; 86038; 86140; 86235; 86480; 86706; 86850; 86900; 86923; 87086; 93005; 93306; 93922; 93925; 99285; C1894; J0171; J0690; J0878; J0882; J1100; J1170; J1335; J1644; J1815; J2250; J2405; J2704; J2710; J2720; J3010; J3490; C1751; G0365; J0330; J1642; J1940; P9016

== ENCOUNTER → 2018-03-07 | Outpatient (CLI) | payer MEDICARE ==
[~2018-03-07] MED LIST changes: +AMLO-150 PO; -AMLO5TAB2 PO; +CALC0.25 PO; +HYDR-3341 PO; +ISOS10TA2 PO; -LABE100T3 PO; +LABE100T6 PO; -LABE300T PO; +LABE300T2 PO; -LOSA100T6 PO; +LOSA100T7 PO; -POTA20PA PO; +POTA20PA31 PO
== END | disposition home or self-care (01) ==
LOC: CVU 14:12
PROVIDERS: ATTEND Internal Medicine Cardiovascular Disease
DX: I65.23 Occlusion and stenosis of bilateral carotid arteries (principal); I10 Essential (primary) hypertension; E11.9 Type 2 diabetes mellitus without complications; E78.5 Hyperlipidemia, unspecified
CPT/HCPCS: 93880

== ENCOUNTER 2018-04-06 09:53 | Outpatient (CLI) | payer MEDICARE ==
[~2018-04-06 09:53] MED LIST changes: +LOSA100T14 PO; -LOSA100T7 PO
== END 2018-04-06 23:59 | disposition home or self-care (01) ==
LOC: WOUND 09:53
PROVIDERS: ATTEND Internal Medicine
DX: E11.621 Type 2 diabetes mellitus with foot ulcer (principal); L97.514 Non-pressure chronic ulcer of other part of right foot with necrosis of bone; E11.69 Type 2 diabetes mellitus with other specified complication; M86.071 Acute hematogenous osteomyelitis, right ankle and foot; E11.40 Type 2 diabetes mellitus with diabetic neuropathy, unspecified; E11.51 Type 2 diabetes mellitus with diabetic peripheral angiopathy without gangrene; E78.5 Hyperlipidemia, unspecified; I25.10 Atherosclerotic heart disease of native coronary artery without angina pectoris; E11.22 Type 2 diabetes mellitus with diabetic chronic kidney disease; I13.2 Hypertensive heart and chronic kidney disease with heart failure and with stage 5 chronic kidney disease, or end stage renal disease; N18.6 End stage renal disease; I50.42 Chronic combined systolic (congestive) and diastolic (congestive) heart failure; F41.9 Anxiety disorder, unspecified; K21.9 Gastro-esophageal reflux disease without esophagitis; Z89.421 Acquired absence of other right toe(s); Z86.711 Personal history of pulmonary embolism; Z86.73 Personal history of transient ischemic attack (TIA), and cerebral infarction without residual deficits; Z99.2 Dependence on renal dialysis
CPT/HCPCS: 11044; 87070; 87077; 87186; 87205; 97597; G0463; 11047

== ENCOUNTER 2018-04-07 14:39 | Inpatient (IN) | payer MEDICARE ==
[~2018-04-07] VITALS: Ht 167.6 cm; Wt 65.3 kg
--- NOTE | 2018-04-07 14:59 | NUR ---
Pt states that she has an infection in her right 2nd toe, she does not know how it started, but she states that she went to her doctor last week and was told that the infection is "in the bone." Pt c/o pain and swelling to the toe. Pt states that she has had fever/chills today. Pt had dialysis today.
[2018-04-07 15:13] LABS: BASOPHILS # (AUTO) 0.05 x10^3/uL (0-0.1); BASOPHILS % (AUTO) 1 % (0-1); EOSINOPHILS # (AUTO) 0.05 x10^3/uL (0-0.4); EOSINOPHILS % (AUTO) 1 % (1-7); HCT (SEDRATE) 28.9 % (34.6-47.8); LYMPHOCYTES # (AUTO) 1.82 x10^3/uL (1-3.4); LYMPHOCYTES % (AUTO) 18 % (22-44); MD NO; MEAN CORPUSCULAR HEMOGLOBIN 29.9 pg (27.0-34.8); MEAN CORPUSCULAR HGB CONC 33.1 g/dL (32.4-35.8); MEAN CORPUSCULAR VOLUME 90.3 fL (80-100); MONOCYTES # (AUTO) 0.64 x10^3/uL (0.2-0.8); MONOCYTES % (AUTO) 6 % (2-9); NEUTROPHILS % (AUTO) 75 % (42-75); PLATELET COUNT 391 x10^3/uL (130-400); RED BLOOD COUNT 3.21 x10^6/uL (3.82-5.3); RED CELL DISTRIBUTION WIDTH 14.8 % (9.6-15.2)
--- NOTE | 2018-04-07 15:23 | NUR ---
XR at bedside.
[2018-04-07 15:24] LABS: ANION GAP 6 mmol/L (5-15); CALCIUM 8.4 mg/dL (8.5-10.1); CHLORIDE 98 mmol/L (98-107); CREATININE 1.82 mg/dL (0.55-1.02)
--- NOTE | 2018-04-07 15:29 | NUR ---
Dr. Griggs at bedside to evaluate pt.
[2018-04-07] MEDS ORDERED: VANCOMYCIN PER PHARMACY MC PRN ×2 (16:00→18:00)
[2018-04-07] MEDS ORDERED: VANCOMYCIN 1,400 MG in SODIUM CHLORIDE 0.9% 250 ML IV ONE (16:00)
[2018-04-07] MEDS ORDERED: AMPICILLIN/SULBACTAM 3 GM in SODIUM CHLORIDE 0.9% 100 ML IV ONE (16:00)
--- NOTE | 2018-04-07 16:25 | NUR ---
PIV started, pt ambulated to bathroom, no assistance required. IV ABX started, blood cultures x 2 drawn.
--- NOTE | 2018-04-07 17:01 | NUR ---
Telephone SBAR report given to Gladis FULLER. Admitting MD in room to evaluate pt. Pt will be made aware of new room assignment.
[2018-04-07 17:40] VITALS: BP 160/85
[2018-04-07] MEDS ORDERED: HYDROcodone/APAP 5/325 TABLET PO PRN (18:00)
[2018-04-07] MEDS ORDERED: ONDANSETRON 2MG/ML, 2ML IVPush PRN (18:00)
[2018-04-07] MEDS ORDERED: hydrALAzine 20 MG/ML, 1ML IVPush PRN (18:00)
[2018-04-07] MEDS ORDERED: morphine SULFATE 10 MG/ML, 1ML IVPush PRN (18:00)
[2018-04-07] MEDS ORDERED: PHARMACOKINETIC CONSULTATION MC ONE ×2 (18:00)
[2018-04-07] MEDS ORDERED: PHARMACOKINETIC MONITORING MC PRN ×2 (18:00)
[2018-04-07 18:14] LABS: HEMOGLOBIN A1C 7.6 % (4.2-6.3)
[2018-04-07 19:17] VITALS: BP 193/49
[2018-04-07] MEDS: ATORVASTATIN 40 MG TABLET PO SCH (20:25)
[2018-04-07] MEDS: AMLODIPINE 5 MG TABLET PO SCH (20:25)
[2018-04-07] MEDS: LABETALOL 300 MG TABLET PO SCH (20:27)
[2018-04-07] MEDS ORDERED: AMPICILLIN/SULBACTAM 3 GM in SODIUM CHLORIDE 0.9% 100 ML IV SCH (22:30)
[2018-04-07] MEDS: INSULIN LISPRO 100 UNITS/ML, PEN SQ-INSULIN SCH (23:35)
[2018-04-08 01:20] VITALS: BP 154/68
[2018-04-08] MEDS: ACETAMINOPHEN 325 MG TABLET PO PRN ×2 (01:29→13:52)
[2018-04-08] MEDS: AMPICILLIN/SULBACTAM 3 GM in SODIUM CHLORIDE 0.9% 100 ML IV SCH ×2 (04:29→15:47)
[2018-04-08 05:31] LABS: ANION GAP 7 mmol/L (5-15); CALCIUM 7.7 mg/dL (8.5-10.1); CHLORIDE 107 mmol/L (98-107)
[2018-04-08 05:33] LABS: BASOPHILS % (AUTO) 0 % (0-1); EOSINOPHILS # (AUTO) 0.04 x10^3/uL (0-0.4); EOSINOPHILS % (AUTO) 0 % (1-7); LYMPHOCYTES # (AUTO) 0.48 x10^3/uL (1-3.4); LYMPHOCYTES % (AUTO) 5 % (22-44); MD NO; MEAN CORPUSCULAR HEMOGLOBIN 30.5 pg (27.0-34.8); MEAN CORPUSCULAR HGB CONC 33.6 g/dL (32.4-35.8); MEAN CORPUSCULAR VOLUME 90.9 fL (80-100); MEAN PLATELET VOLUME 8.3 fL (7.4-10.4); MONOCYTES % (AUTO) 8 % (2-9); NEUTROPHILS # (AUTO) 8.28 x10^3/uL (1.8-6.8); NEUTROPHILS % (AUTO) 86 % (42-75); PLATELET COUNT 291 x10^3/uL (130-400); RED BLOOD COUNT 2.56 x10^6/uL (3.82-5.3); RED CELL DISTRIBUTION WIDTH 14.6 % (9.6-15.2)
[2018-04-08 05:34] LABS: CREATININE 3.03 mg/dL (0.55-1.02); VANCOMYCIN,RANDOM 19.9 mcg/mL
[2018-04-08] MEDS: INSULIN LISPRO 100 UNITS/ML, PEN SQ-INSULIN SCH ×4 (07:00→20:45)
[2018-04-08] MEDS: CLOPIDOGREL 75 MG TABLET PO SCH (07:43)
[2018-04-08 08:00] VITALS: BP 115/56
[2018-04-08] MEDS: OMEPRAZOLE 20 MG CAPSULE.DR PO SCH (08:27)
[2018-04-08] MEDS: LABETALOL 300 MG TABLET PO SCH ×2 (08:27→20:42)
[2018-04-08] MEDS: AMLODIPINE 5 MG TABLET PO SCH ×2 (08:27→20:42)
[2018-04-08] MEDS: FERROUS GLUCONATE 324 MG TABLET PO SCH (08:27)
[2018-04-08 13:05] VITALS: BP 134/61
[2018-04-08] MEDS ORDERED: DARBEPOETIN 100 MCG/ML SQ SCH (13:30)
[2018-04-08] MEDS ORDERED: MIDAZOLAM 1 MG/ML, 2ML ONE (17:27)
[2018-04-08] MEDS ORDERED: FENTANYL PF 250 MCG/5ML ONE (17:27)
[2018-04-08] MEDS ORDERED: NEOSTIGMINE 1 MG/ML, 10ML ONE (17:39)
[2018-04-08] MEDS ORDERED: ONDANSETRON 2MG/ML, 2ML ONE (18:02)
[2018-04-08] MEDS ORDERED: PROPOFOL 10 MG/ML, 20ML ONE (18:02)
[2018-04-08] MEDS ORDERED: LIDOCAINE-MPF 2% ,5ML ONE (18:02)
[2018-04-08] MEDS ORDERED: ROCURONIUM 10MG/ML,5ML ONE (18:02)
[2018-04-08] MEDS ORDERED: DEXAMETHASONE 4 MG/ML, 1ML ONE (18:02)
[2018-04-08] MEDS ORDERED: HYDROmorphone 2 MG/ML, 1ML IVPush PRN (18:30)
[2018-04-08] MEDS ORDERED: OXYcodone 5 MG/5 ML ORAL.SOL UDC PO PRN (18:30)
[2018-04-08] MEDS ORDERED: ACETAMINOPHEN 325 MG TABLET PO PRN (18:30)
[2018-04-08] MEDS ORDERED: hydrALAzine 20 MG/ML, 1ML IV PRN (18:30)
[2018-04-08] MEDS ORDERED: MEPERIDINE/PF 25MG/0.5ML IVPush PRN (18:30)
[2018-04-08] MEDS ORDERED: HALOPERIDOL 5 MG/ML IV PRN (18:30)
[2018-04-08] MEDS ORDERED: PROMETHAZINE 25 MG/ML, 1ML IV PRN (18:30)
[2018-04-08] MEDS ORDERED: FENTANYL PF 100 MCG/2ML IV PRN (18:30)
[2018-04-08] MEDS: ATORVASTATIN 40 MG TABLET PO SCH (20:42)
[2018-04-08 21:10] VITALS: BP 127/55
[2018-04-09 00:36] VITALS: BP 113/58
[2018-04-09 05:41] LABS: CHLORIDE 102 mmol/L (98-107)
[2018-04-09 06:06] LABS: ALBUMIN 2.3 g/dL (3.4-5.0); ANION GAP 11 mmol/L (5-15); CALCIUM 7.9 mg/dL (8.5-10.1); CREATINE KINASE, TOTAL 58 U/L (26-192); CREATININE 4.12 mg/dL (0.55-1.02)
[2018-04-09] MEDS: INSULIN LISPRO 100 UNITS/ML, PEN SQ-INSULIN SCH ×4 (07:00→20:49)
[2018-04-09] MEDS: OMEPRAZOLE 20 MG CAPSULE.DR PO SCH (07:30)
[2018-04-09 07:54] VITALS: BP 130/66
[2018-04-09] MEDS: CLOPIDOGREL 75 MG TABLET PO SCH (08:04)
[2018-04-09] MEDS: AMLODIPINE 5 MG TABLET PO SCH ×2 (08:04→20:49)
[2018-04-09] MEDS: FERROUS GLUCONATE 324 MG TABLET PO SCH (08:04)
[2018-04-09] MEDS: LABETALOL 300 MG TABLET PO SCH ×2 (08:05→20:49)
[2018-04-09 12:42] VITALS: BP 149/58
[2018-04-09] MEDS: AMPICILLIN/SULBACTAM 3 GM in SODIUM CHLORIDE 0.9% 100 ML IV SCH (14:48)
[2018-04-09] MEDS ORDERED: VANCOMYCIN 1,400 MG in SODIUM CHLORIDE 0.9% 250 ML IV ONE (15:00)
[2018-04-09 20:43] VITALS: BP 113/53
[2018-04-09] MEDS: ATORVASTATIN 40 MG TABLET PO SCH (20:49)
[2018-04-09] MEDS: TEMAZEPAM 15 MG CAPSULE PO PRN (23:57)
[2018-04-09] MEDS: ARTIFICIAL TEARS 15 DROP/ML BOTTLE EACHEYE PRN (23:58)
[2018-04-10 03:59] VITALS: BP 107/54
[2018-04-10 05:31] LABS: MEAN CORPUSCULAR HEMOGLOBIN 29.9 pg (27.0-34.8); MEAN CORPUSCULAR HGB CONC 33.1 g/dL (32.4-35.8); MEAN CORPUSCULAR VOLUME 90.4 fL (80-100); MEAN PLATELET VOLUME 8.5 fL (7.4-10.4); PLATELET COUNT 281 x10^3/uL (130-400); RED BLOOD COUNT 2.41 x10^6/uL (3.82-5.3); RED CELL DISTRIBUTION WIDTH 14.9 % (9.6-15.2)
[2018-04-10 05:37] LABS: ANION GAP 8 mmol/L (5-15); CALCIUM 7.6 mg/dL (8.5-10.1); CHLORIDE 102 mmol/L (98-107); CREATININE 3.05 mg/dL (0.55-1.02)
[2018-04-10 06:40] LABS: BASOPHILS # (AUTO) 0.02 x10^3/uL (0-0.1); BASOPHILS % (AUTO) 0 % (0-1); EOSINOPHILS # (AUTO) 0.44 x10^3/uL (0-0.4); EOSINOPHILS % (AUTO) 4 % (1-7); LYMPHOCYTES # (AUTO) 0.93 x10^3/uL (1-3.4); LYMPHOCYTES % (AUTO) 9 % (22-44); MD SCAN; MONOCYTES # (AUTO) 0.58 x10^3/uL (0.2-0.8); MONOCYTES % (AUTO) 6 % (2-9); NEUTROPHILS # (AUTO) 8.01 x10^3/uL (1.8-6.8); NEUTROPHILS % (AUTO) 80 % (42-75)
[2018-04-10] MEDS: OMEPRAZOLE 20 MG CAPSULE.DR PO SCH (08:18)
[2018-04-10] MEDS: INSULIN LISPRO 100 UNITS/ML, PEN SQ-INSULIN SCH ×4 (08:23→21:01)
[2018-04-10 08:40] VITALS: BP 148/68
[2018-04-10] MEDS: FERROUS GLUCONATE 324 MG TABLET PO SCH (09:14)
[2018-04-10] MEDS: LABETALOL 300 MG TABLET PO SCH ×2 (09:15→20:56)
[2018-04-10] MEDS: AMLODIPINE 5 MG TABLET PO SCH ×2 (09:15→20:57)
[2018-04-10] MEDS: CLOPIDOGREL 75 MG TABLET PO SCH (09:15)
[2018-04-10] MEDS: ARTIFICIAL TEARS 15 DROP/ML BOTTLE EACHEYE PRN (09:25)
[2018-04-10 13:23] VITALS: BP 157/62
[2018-04-10] MEDS: AMPICILLIN/SULBACTAM 3 GM in SODIUM CHLORIDE 0.9% 100 ML IV SCH (14:34)
[2018-04-10 20:00] VITALS: BP 146/68
[2018-04-10] MEDS: ATORVASTATIN 40 MG TABLET PO SCH (20:57)
[2018-04-11] VITALS (7 sets, daily range): BP systolic 123–155; BP diastolic 38–66
[2018-04-11] MEDS ORDERED: FUROSEMIDE 40 MG/4 ML IV ONE (00:30)
[2018-04-11] MEDS: INSULIN LISPRO 100 UNITS/ML, PEN SQ-INSULIN SCH ×4 (07:00→21:00)
[2018-04-11] MEDS: OMEPRAZOLE 20 MG CAPSULE.DR PO SCH (09:10)
[2018-04-11] MEDS: CLOPIDOGREL 75 MG TABLET PO SCH (09:10)
[2018-04-11] MEDS: AMLODIPINE 5 MG TABLET PO SCH ×2 (09:10→21:09)
[2018-04-11] MEDS: LABETALOL 300 MG TABLET PO SCH ×2 (09:11→21:15)
[2018-04-11] MEDS: FERROUS GLUCONATE 324 MG TABLET PO SCH (09:11)
[2018-04-11] MEDS ORDERED: CATHFLO-ALTEPLASE 2 MG/2 ML CATHFLUSH ONE ×2 (10:30)
[2018-04-11] MEDS ORDERED: OMNIPAQUE 350 MG/ML, 100ML BOTTLE ONE (12:07)
[2018-04-11] MEDS: AMPICILLIN/SULBACTAM 3 GM in SODIUM CHLORIDE 0.9% 100 ML IV SCH (21:09)
[2018-04-11] MEDS: ATORVASTATIN 40 MG TABLET PO SCH (21:09)
[2018-04-12 00:17] VITALS: BP 119/50
[2018-04-12 02:40] VITALS: BP 146/56
[2018-04-12 04:55] VITALS: BP 117/66
[2018-04-12 06:02] LABS: ALBUMIN 2.4 g/dL (3.4-5.0); ANION GAP 7 mmol/L (5-15); CALCIUM 7.6 mg/dL (8.5-10.1); CHLORIDE 97 mmol/L (98-107)
[2018-04-12 06:06] LABS: % IRON SATURATION 18 % (20-55); ALANINE AMINOTRANSFERASE 15 U/L (12-78); ALKALINE PHOSPHATASE 71 U/L (45-117); BILIRUBIN,TOTAL 0.8 mg/dL (0.2-1.0); CREATININE 2.64 mg/dL (0.55-1.02); IRON LEVEL 25 mcg/dL (50-170); TOTAL IRON BINDING CAPACITY 141 mcg/dL (250-450); TOTAL PROTEIN 6.5 g/dL (6.4-8.2)
[2018-04-12 06:11] LABS: MEAN CORPUSCULAR HEMOGLOBIN 29.9 pg (27.0-34.8); MEAN CORPUSCULAR HGB CONC 33.1 g/dL (32.4-35.8); MEAN CORPUSCULAR VOLUME 90.3 fL (80-100); MEAN PLATELET VOLUME 8.5 fL (7.4-10.4); PLATELET COUNT 269 x10^3/uL (130-400); RED BLOOD COUNT 2.49 x10^6/uL (3.82-5.3); RED CELL DISTRIBUTION WIDTH 14.8 % (9.6-15.2)
[2018-04-12 06:31] LABS: BASOPHILS # (AUTO) 0.02 x10^3/uL (0-0.1); BASOPHILS % (AUTO) 0 % (0-1); EOSINOPHILS # (AUTO) 0.28 x10^3/uL (0-0.4); EOSINOPHILS % (AUTO) 4 % (1-7); LYMPHOCYTES # (AUTO) 1.19 x10^3/uL (1-3.4); LYMPHOCYTES % (AUTO) 17 % (22-44); MD SCAN; MONOCYTES # (AUTO) 0.53 x10^3/uL (0.2-0.8); MONOCYTES % (AUTO) 8 % (2-9); NEUTROPHILS % (AUTO) 71 % (42-75)
[2018-04-12] MEDS: INSULIN LISPRO 100 UNITS/ML, PEN SQ-INSULIN SCH ×4 (07:00→21:00)
[2018-04-12 08:05] VITALS: BP 134/63
[2018-04-12] MEDS: OMEPRAZOLE 20 MG CAPSULE.DR PO SCH (08:57)
[2018-04-12] MEDS: AMLODIPINE 5 MG TABLET PO SCH ×2 (08:57→21:56)
[2018-04-12] MEDS: LABETALOL 300 MG TABLET PO SCH ×2 (08:57→21:00)
[2018-04-12] MEDS: FERROUS GLUCONATE 324 MG TABLET PO SCH (08:57)
[2018-04-12] MEDS: CLOPIDOGREL 75 MG TABLET PO SCH (08:57)
[2018-04-12] MEDS ORDERED: LIDOCAINE-MPF 1%, 5ML ONE (11:31)
[2018-04-12] MEDS ORDERED: NITROGLYCERIN 5 MG/ML, 10ML ONE (11:34)
[2018-04-12] MEDS ORDERED: FLUMAZENIL 0.1 MG/1 ML, 5ML ONE (11:34)
[2018-04-12] MEDS ORDERED: FENTANYL PF 100 MCG/2ML ONE (11:34)
[2018-04-12] MEDS ORDERED: MIDAZOLAM 1 MG/ML, 5ML ONE (11:34)
[2018-04-12] MEDS ORDERED: PROTAMINE SULFATE 10 MG/ML, 25ML ONE (11:35)
[2018-04-12] MEDS ORDERED: HEPARIN 1,000 UNITS/ML, 10ML ONE (11:35)
[2018-04-12] MEDS ORDERED: NALOXONE 1 MG/ML, 2ML ONE (11:35)
[2018-04-12 13:12] VITALS: BP 130/46
[2018-04-12 21:04] VITALS: BP 127/62
[2018-04-12] MEDS: AMPICILLIN/SULBACTAM 3 GM in SODIUM CHLORIDE 0.9% 100 ML IV SCH (21:55)
[2018-04-12] MEDS: ATORVASTATIN 40 MG TABLET PO SCH (21:56)
[2018-04-13 01:23] VITALS: BP 135/55
[2018-04-13 05:13] LABS: HCT (SEDRATE) 24.2 % (34.6-47.8)
[2018-04-13 05:17] LABS: BASOPHILS # (AUTO) 0.04 x10^3/uL (0-0.1); BASOPHILS % (AUTO) 0 % (0-1); EOSINOPHILS # (AUTO) 0.38 x10^3/uL (0-0.4); EOSINOPHILS % (AUTO) 4 % (1-7); LYMPHOCYTES # (AUTO) 1.83 x10^3/uL (1-3.4); LYMPHOCYTES % (AUTO) 21 % (22-44); MD NO; MEAN CORPUSCULAR HEMOGLOBIN 30.4 pg (27.0-34.8); MEAN CORPUSCULAR HGB CONC 33.7 g/dL (32.4-35.8); MEAN CORPUSCULAR VOLUME 89.9 fL (80-100); MEAN PLATELET VOLUME 8.7 fL (7.4-10.4); MONOCYTES # (AUTO) 0.64 x10^3/uL (0.2-0.8); MONOCYTES % (AUTO) 7 % (2-9); NEUTROPHILS # (AUTO) 5.97 x10^3/uL (1.8-6.8); NEUTROPHILS % (AUTO) 67 % (42-75); PLATELET COUNT 289 x10^3/uL (130-400); RED BLOOD COUNT 2.67 x10^6/uL (3.82-5.3); RED CELL DISTRIBUTION WIDTH 14.9 % (9.6-15.2)
[2018-04-13 05:25] LABS: ALANINE AMINOTRANSFERASE 13 U/L (12-78); ALBUMIN 2.3 g/dL (3.4-5.0); ANION GAP 7 mmol/L (5-15); CALCIUM 7.7 mg/dL (8.5-10.1); CHLORIDE 100 mmol/L (98-107); CREATININE 2.99 mg/dL (0.55-1.02)
[2018-04-13 05:40] LABS: ALKALINE PHOSPHATASE 73 U/L (45-117); BILIRUBIN,TOTAL 0.6 mg/dL (0.2-1.0); TOTAL PROTEIN 6.5 g/dL (6.4-8.2)
[2018-04-13] MEDS: INSULIN LISPRO 100 UNITS/ML, PEN SQ-INSULIN SCH ×4 (07:00→21:00)
[2018-04-13 08:04] VITALS: BP 127/64
[2018-04-13] MEDS: CLOPIDOGREL 75 MG TABLET PO SCH ×2 (08:45→09:03)
[2018-04-13] MEDS: LABETALOL 300 MG TABLET PO SCH ×2 (09:03→22:17)
[2018-04-13] MEDS: OMEPRAZOLE 20 MG CAPSULE.DR PO SCH (09:03)
[2018-04-13] MEDS: AMLODIPINE 5 MG TABLET PO SCH ×2 (09:03→22:17)
[2018-04-13] MEDS: FERROUS GLUCONATE 324 MG TABLET PO SCH (09:03)
[2018-04-13] MEDS ORDERED: VANCOMYCIN 1,400 MG in SODIUM CHLORIDE 0.9% 250 ML IV ONE (12:00)
[2018-04-13 14:41] VITALS: BP 132/68
[2018-04-13] MEDS ORDERED: BISACODYL 10 MG SUPP PR PRN (17:30)
[2018-04-13] MEDS ORDERED: MAGNESIUM HYDROXIDE 8%, 30ML UDC PO PRN (17:30)
[2018-04-13] MEDS: DOCUSATE 100 MG CAPSULE PO SCH (21:00)
[2018-04-13] MEDS: ATORVASTATIN 40 MG TABLET PO SCH (22:17)
[2018-04-13] MEDS: AMPICILLIN/SULBACTAM 3 GM in SODIUM CHLORIDE 0.9% 100 ML IV SCH (22:18)
[2018-04-13] MEDS: ARTIFICIAL TEARS 15 DROP/ML BOTTLE EACHEYE PRN (22:26)
[2018-04-14] MEDS: TEMAZEPAM 15 MG CAPSULE PO PRN ×2 (02:45→22:53)
[2018-04-14 02:50] VITALS: BP 144/53
[2018-04-14 04:38] LABS: BASOPHILS # (AUTO) 0.04 x10^3/uL (0-0.1); BASOPHILS % (AUTO) 1 % (0-1); EOSINOPHILS # (AUTO) 0.27 x10^3/uL (0-0.4); EOSINOPHILS % (AUTO) 3 % (1-7); LYMPHOCYTES # (AUTO) 1.85 x10^3/uL (1-3.4); LYMPHOCYTES % (AUTO) 22 % (22-44); MD NO; MEAN CORPUSCULAR HEMOGLOBIN 29.1 pg (27.0-34.8); MEAN CORPUSCULAR HGB CONC 32.3 g/dL (32.4-35.8); MEAN PLATELET VOLUME 8.4 fL (7.4-10.4); MONOCYTES # (AUTO) 0.76 x10^3/uL (0.2-0.8); MONOCYTES % (AUTO) 9 % (2-9); NEUTROPHILS # (AUTO) 5.71 x10^3/uL (1.8-6.8); NEUTROPHILS % (AUTO) 66 % (42-75); PLATELET COUNT 310 x10^3/uL (130-400); RED BLOOD COUNT 2.83 x10^6/uL (3.82-5.3); RED CELL DISTRIBUTION WIDTH 14.6 % (9.6-15.2)
[2018-04-14 04:44] LABS: ANION GAP 9 mmol/L (5-15); CHLORIDE 100 mmol/L (98-107); CREATININE 3.04 mg/dL (0.55-1.02)
[2018-04-14] MEDS: INSULIN LISPRO 100 UNITS/ML, PEN SQ-INSULIN SCH ×4 (07:00→21:07)
[2018-04-14] MEDS: CLOPIDOGREL 75 MG TABLET PO SCH ×2 (07:32→08:12)
[2018-04-14 07:59] VITALS: BP 140/58
[2018-04-14] MEDS: FERROUS GLUCONATE 324 MG TABLET PO SCH (08:11)
[2018-04-14] MEDS: OMEPRAZOLE 20 MG CAPSULE.DR PO SCH (08:11)
[2018-04-14] MEDS: POLYETHYLENE GLYCOL 17 GM PACKET PO SCH (08:12)
[2018-04-14] MEDS: LABETALOL 300 MG TABLET PO SCH ×2 (08:12→20:42)
[2018-04-14] MEDS: DOCUSATE 100 MG CAPSULE PO SCH ×3 (08:12→20:48)
[2018-04-14] MEDS: AMLODIPINE 5 MG TABLET PO SCH ×2 (08:14→20:41)
[2018-04-14 14:02] VITALS: BP 138/63
[2018-04-14 18:32] VITALS: BP 134/60
[2018-04-14] MEDS: ATORVASTATIN 40 MG TABLET PO SCH (20:41)
[2018-04-14] MEDS: AMPICILLIN/SULBACTAM 3 GM in SODIUM CHLORIDE 0.9% 100 ML IV SCH (22:53)
[2018-04-15 04:00] VITALS: BP 121/38
[2018-04-15] MEDS: INSULIN LISPRO 100 UNITS/ML, PEN SQ-INSULIN SCH ×4 (07:00→20:47)
[2018-04-15] MEDS: DOCUSATE 100 MG CAPSULE PO SCH ×2 (07:37→20:46)
[2018-04-15] MEDS: POLYETHYLENE GLYCOL 17 GM PACKET PO SCH (07:37)
[2018-04-15] MEDS: AMLODIPINE 5 MG TABLET PO SCH ×2 (07:38→20:46)
[2018-04-15] MEDS: LABETALOL 300 MG TABLET PO SCH ×2 (07:38→20:46)
[2018-04-15] MEDS: CLOPIDOGREL 75 MG TABLET PO SCH ×2 (07:38)
[2018-04-15] MEDS: FERROUS GLUCONATE 324 MG TABLET PO SCH (07:38)
[2018-04-15 07:42] VITALS: BP 137/61
[2018-04-15] MEDS: OMEPRAZOLE 20 MG CAPSULE.DR PO SCH (07:44)
[2018-04-15 07:59] VITALS: BP 159/63
[2018-04-15] MEDS ORDERED: DARBEPOETIN 100 MCG/ML SQ SCH (13:09)
[2018-04-15 13:21] VITALS: BP 139/57
[2018-04-15] MEDS ORDERED: LIDOCAINE-MPF 1%, 5ML ONE (14:54)
[2018-04-15 18:45] VITALS: BP 136/50
[2018-04-15 20:47] VITALS: BP 120/50
[2018-04-15] MEDS: ATORVASTATIN 40 MG TABLET PO SCH (20:47)
[2018-04-15] MEDS: AMPICILLIN/SULBACTAM 3 GM in SODIUM CHLORIDE 0.9% 100 ML IV SCH (22:13)
[2018-04-16 04:00] VITALS: BP 133/56
[2018-04-16 07:52] VITALS: BP 164/52
[2018-04-16] MEDS: INSULIN LISPRO 100 UNITS/ML, PEN SQ-INSULIN SCH ×4 (07:56→21:19)
[2018-04-16] MEDS: OMEPRAZOLE 20 MG CAPSULE.DR PO SCH (07:56)
[2018-04-16] MEDS: CLOPIDOGREL 75 MG TABLET PO SCH ×2 (09:05→09:10)
[2018-04-16] MEDS: AMLODIPINE 5 MG TABLET PO SCH ×2 (09:06→21:07)
[2018-04-16] MEDS: LABETALOL 300 MG TABLET PO SCH ×2 (09:09→21:06)
[2018-04-16] MEDS: DOCUSATE 100 MG CAPSULE PO SCH ×2 (09:10→21:07)
[2018-04-16] MEDS: POLYETHYLENE GLYCOL 17 GM PACKET PO SCH (09:10)
[2018-04-16] MEDS: FERROUS GLUCONATE 324 MG TABLET PO SCH (09:10)
[2018-04-16 09:11] VITALS: BP 127/62
[2018-04-16 13:59] VITALS: BP 120/61
[2018-04-16 20:00] VITALS: BP 152/57
[2018-04-16] MEDS: ATORVASTATIN 40 MG TABLET PO SCH (21:07)
[2018-04-16] MEDS: AMPICILLIN/SULBACTAM 3 GM in SODIUM CHLORIDE 0.9% 100 ML IV SCH (22:21)
[2018-04-16] MEDS: TEMAZEPAM 15 MG CAPSULE PO PRN (22:21)
[2018-04-17 02:00] VITALS: BP 159/68
[2018-04-17 05:58] LABS: BASOPHILS # (AUTO) 0.06 x10^3/uL (0-0.1); BASOPHILS % (AUTO) 1 % (0-1); EOSINOPHILS # (AUTO) 0.26 x10^3/uL (0-0.4); EOSINOPHILS % (AUTO) 3 % (1-7); LYMPHOCYTES # (AUTO) 2.53 x10^3/uL (1-3.4); LYMPHOCYTES % (AUTO) 31 % (22-44); MD NO; MEAN CORPUSCULAR HEMOGLOBIN 30.6 pg (27.0-34.8); MEAN CORPUSCULAR VOLUME 89.9 fL (80-100); MEAN PLATELET VOLUME 8.4 fL (7.4-10.4); MONOCYTES # (AUTO) 0.67 x10^3/uL (0.2-0.8); MONOCYTES % (AUTO) 8 % (2-9); NEUTROPHILS # (AUTO) 4.66 x10^3/uL (1.8-6.8); NEUTROPHILS % (AUTO) 57 % (42-75); PLATELET COUNT 324 x10^3/uL (130-400); RED BLOOD COUNT 2.74 x10^6/uL (3.82-5.3); RED CELL DISTRIBUTION WIDTH 15.1 % (9.6-15.2)
[2018-04-17 06:08] LABS: ANION GAP 9 mmol/L (5-15); CALCIUM 8.2 mg/dL (8.5-10.1); CHLORIDE 103 mmol/L (98-107); CREATININE 5.02 mg/dL (0.55-1.02)
[2018-04-17 06:09] LABS: VANCOMYCIN,RANDOM 17.8 mcg/mL
[2018-04-17] MEDS: INSULIN LISPRO 100 UNITS/ML, PEN SQ-INSULIN SCH ×4 (07:55→21:08)
[2018-04-17] MEDS: OMEPRAZOLE 20 MG CAPSULE.DR PO SCH (07:55)
[2018-04-17 08:08] VITALS: BP 132/61
[2018-04-17] MEDS: AMLODIPINE 5 MG TABLET PO SCH ×2 (09:25→21:09)
[2018-04-17] MEDS: FERROUS GLUCONATE 324 MG TABLET PO SCH (09:25)
[2018-04-17] MEDS: CLOPIDOGREL 75 MG TABLET PO SCH ×2 (09:25→09:26)
[2018-04-17] MEDS: LABETALOL 300 MG TABLET PO SCH ×2 (09:26→21:09)
[2018-04-17] MEDS: POLYETHYLENE GLYCOL 17 GM PACKET PO SCH (09:26)
[2018-04-17] MEDS: DOCUSATE 100 MG CAPSULE PO SCH ×2 (09:26→21:00)
[2018-04-17] MEDS ORDERED: VANCOMYCIN 1,400 MG in SODIUM CHLORIDE 0.9% 250 ML IV ONE (13:00)
[2018-04-17 13:44] VITALS: BP 129/70
[2018-04-17 20:00] VITALS: BP 148/65
[2018-04-17] MEDS: ATORVASTATIN 40 MG TABLET PO SCH (21:08)
[2018-04-17] MEDS: TEMAZEPAM 15 MG CAPSULE PO PRN (21:08)
[2018-04-17] MEDS: AMPICILLIN/SULBACTAM 3 GM in SODIUM CHLORIDE 0.9% 100 ML IV SCH (22:27)
[2018-04-18 02:00] VITALS: BP 157/61
[2018-04-18 06:01] LABS: ALBUMIN 2.7 g/dL (3.4-5.0); ANION GAP 10 mmol/L (5-15); C-REACTIVE PROTEIN, QUANT 0.91 mg/dL (0.02-0.49); CALCIUM 8.2 mg/dL (8.5-10.1); CHLORIDE 105 mmol/L (98-107); CREATININE 5.35 mg/dL (0.55-1.02)
[2018-04-18 06:42] LABS: BASOPHILS # (AUTO) 0.06 x10^3/uL (0-0.1); BASOPHILS % (AUTO) 1 % (0-1); EOSINOPHILS # (AUTO) 0.25 x10^3/uL (0-0.4); EOSINOPHILS % (AUTO) 3 % (1-7); LYMPHOCYTES # (AUTO) 1.96 x10^3/uL (1-3.4); LYMPHOCYTES % (AUTO) 24 % (22-44); MD NO; MEAN CORPUSCULAR HGB CONC 33.6 g/dL (32.4-35.8); MEAN CORPUSCULAR VOLUME 89.3 fL (80-100); MEAN PLATELET VOLUME 8.5 fL (7.4-10.4); MONOCYTES # (AUTO) 0.61 x10^3/uL (0.2-0.8); MONOCYTES % (AUTO) 7 % (2-9); NEUTROPHILS # (AUTO) 5.31 x10^3/uL (1.8-6.8); NEUTROPHILS % (AUTO) 65 % (42-75); PLATELET COUNT 316 x10^3/uL (130-400); RED BLOOD COUNT 2.81 x10^6/uL (3.82-5.3); RED CELL DISTRIBUTION WIDTH 15.3 % (9.6-15.2)
[2018-04-18 06:46] LABS: HCT (SEDRATE) 25.1 % (34.6-47.8)
[2018-04-18 08:00] VITALS: BP 137/65
[2018-04-18] MEDS: INSULIN LISPRO 100 UNITS/ML, PEN SQ-INSULIN SCH ×4 (08:07→21:33)
[2018-04-18] MEDS: CLOPIDOGREL 75 MG TABLET PO SCH ×2 (08:07→08:08)
[2018-04-18] MEDS: AMLODIPINE 5 MG TABLET PO SCH ×2 (08:07→21:32)
[2018-04-18] MEDS: FERROUS GLUCONATE 324 MG TABLET PO SCH (08:07)
[2018-04-18] MEDS: OMEPRAZOLE 20 MG CAPSULE.DR PO SCH (08:07)
[2018-04-18] MEDS: DOCUSATE 100 MG CAPSULE PO SCH ×2 (08:08→21:00)
[2018-04-18] MEDS: LABETALOL 300 MG TABLET PO SCH ×2 (08:08→21:32)
[2018-04-18] MEDS: POLYETHYLENE GLYCOL 17 GM PACKET PO SCH (08:08)
[2018-04-18 12:52] VITALS: BP 132/67
[2018-04-18 20:00] VITALS: BP 147/65
[2018-04-18] MEDS: ATORVASTATIN 40 MG TABLET PO SCH (21:32)
[2018-04-18] MEDS: DOXYCYCLINE 100MG TABLET PO SCH (21:32)
[2018-04-18] MEDS: TEMAZEPAM 15 MG CAPSULE PO PRN (21:36)
[2018-04-19 02:00] VITALS: BP 140/55
[2018-04-19] MEDS: INSULIN LISPRO 100 UNITS/ML, PEN SQ-INSULIN SCH ×4 (07:00→21:19)
[2018-04-19] MEDS: OMEPRAZOLE 20 MG CAPSULE.DR PO SCH (07:30)
[2018-04-19 07:50] VITALS: BP 131/62
[2018-04-19] MEDS: LABETALOL 300 MG TABLET PO SCH ×2 (08:23→21:18)
[2018-04-19] MEDS: POLYETHYLENE GLYCOL 17 GM PACKET PO SCH (09:00)
[2018-04-19] MEDS: DOCUSATE 100 MG CAPSULE PO SCH ×2 (09:00→21:00)
[2018-04-19] MEDS ORDERED: MIDAZOLAM 1 MG/ML, 5ML ONE (10:59)
[2018-04-19] MEDS ORDERED: FENTANYL PF 100 MCG/2ML ONE (10:59)
[2018-04-19] MEDS ORDERED: LIDOCAINE-MPF 1%, 5ML ONE (11:05)
[2018-04-19] MEDS: AMLODIPINE 5 MG TABLET PO SCH ×2 (12:53→21:18)
[2018-04-19] MEDS: FERROUS GLUCONATE 324 MG TABLET PO SCH (12:53)
[2018-04-19] MEDS: CLOPIDOGREL 75 MG TABLET PO SCH (12:54)
[2018-04-19] MEDS: DOXYCYCLINE 100MG TABLET PO SCH (12:54)
[2018-04-19 13:23] VITALS: BP 137/49
[2018-04-19 20:00] VITALS: BP 105/58
[2018-04-19] MEDS: ATORVASTATIN 40 MG TABLET PO SCH (21:18)
[2018-04-20 00:19] VITALS: BP 147/55
[2018-04-20] MEDS: TEMAZEPAM 15 MG CAPSULE PO PRN (01:25)
[2018-04-20 07:40] VITALS: BP 121/57
[2018-04-20] MEDS ORDERED: LIDOCAINE-MPF 1%, 5ML ONE (07:49)
[2018-04-20] MEDS ORDERED: CIPROFLOXACIN 500 MG TABLET PO SCH (09:00)
[2018-04-20] MEDS: POLYETHYLENE GLYCOL 17 GM PACKET PO SCH (09:00)
[2018-04-20] MEDS: DOCUSATE 100 MG CAPSULE PO SCH (09:00)
[2018-04-20] MEDS: INSULIN LISPRO 100 UNITS/ML, PEN SQ-INSULIN SCH ×3 (09:10→17:43)
[2018-04-20] MEDS: CLOPIDOGREL 75 MG TABLET PO SCH (09:10)
[2018-04-20] MEDS: AMLODIPINE 5 MG TABLET PO SCH (09:11)
[2018-04-20] MEDS: OMEPRAZOLE 20 MG CAPSULE.DR PO SCH (09:11)
[2018-04-20] MEDS: FERROUS GLUCONATE 324 MG TABLET PO SCH (09:11)
[2018-04-20] MEDS: LABETALOL 300 MG TABLET PO SCH (09:11)
[2018-04-20] MEDS ORDERED: DAPT500V6 IV (10:27)
[2018-04-20] MEDS ORDERED: DOCU-131 PO (10:27)
[2018-04-20] MEDS ORDERED: CIPR500T87 PO (10:27)
[2018-04-20 15:50] VITALS: BP 125/51
== END 2018-04-20 17:44 | disposition home or self-care (01) | DRG 616 ==
LOC: ED 16:12 → 3NE 16:13 → ED 16:29
PROVIDERS: ADMIT Internal Medicine; ATTEND Internal Medicine
PROC: 0YBM0ZZ Excision of Right Foot, Open Approach (ICD-10-PCS; 2018-04-08)
PROC: 0Y6R0Z0 Detachment at Right 2nd Toe, Complete, Open Approach (ICD-10-PCS; principal; 2018-04-08 17:30)
PROC: 5A1D70Z Performance of Urinary Filtration, Intermittent, Less than 6 Hours Per Day (ICD-10-PCS; 2018-04-09)
PROC: 5A1D70Z Performance of Urinary Filtration, Intermittent, Less than 6 Hours Per Day (ICD-10-PCS; 2018-04-11)
PROC: 5A1D70Z Performance of Urinary Filtration, Intermittent, Less than 6 Hours Per Day (ICD-10-PCS; 2018-04-12)
PROC: 047M3ZZ Dilation of Right Popliteal Artery, Percutaneous Approach (ICD-10-PCS; 2018-04-13)
PROC: B41D1ZZ Fluoroscopy of Aorta and Bilateral Lower Extremity Arteries using Low Osmolar Contrast (ICD-10-PCS; 2018-04-13)
PROC: 5A1D70Z Performance of Urinary Filtration, Intermittent, Less than 6 Hours Per Day (ICD-10-PCS; 2018-04-13)
PROC: 5A1D70Z Performance of Urinary Filtration, Intermittent, Less than 6 Hours Per Day (ICD-10-PCS; 2018-04-15)
PROC: 02PY33Z Removal of Infusion Device from Great Vessel, Percutaneous Approach (ICD-10-PCS; 2018-04-15)
PROC: 0JPT0XZ Removal of Tunneled Vascular Access Device from Trunk Subcutaneous Tissue and Fascia, Open Approach (ICD-10-PCS; 2018-04-15)
PROC: 5A1D70Z Performance of Urinary Filtration, Intermittent, Less than 6 Hours Per Day (ICD-10-PCS; 2018-04-19)
PROC: 0JH63XZ Insertion of Tunneled Vascular Access Device into Chest Subcutaneous Tissue and Fascia, Percutaneous Approach (ICD-10-PCS; 2018-04-19)
PROC: 02HV33Z Insertion of Infusion Device into Superior Vena Cava, Percutaneous Approach (ICD-10-PCS; 2018-04-19)
PROC: B5181ZA Fluoroscopy of Superior Vena Cava using Low Osmolar Contrast, Guidance (ICD-10-PCS; 2018-04-19)
PROC: 0JH63XZ Insertion of Tunneled Vascular Access Device into Chest Subcutaneous Tissue and Fascia, Percutaneous Approach (ICD-10-PCS; 2018-04-19)
PROC: 02H633Z Insertion of Infusion Device into Right Atrium, Percutaneous Approach (ICD-10-PCS; 2018-04-19)
PROC: B2141ZZ Fluoroscopy of Right Heart using Low Osmolar Contrast (ICD-10-PCS; 2018-04-19)
PROC: B548ZZA Ultrasonography of Superior Vena Cava, Guidance (ICD-10-PCS; 2018-04-19)
PROC: 02PY33Z Removal of Infusion Device from Great Vessel, Percutaneous Approach (ICD-10-PCS; 2018-04-20)
PROC: 0JPT0XZ Removal of Tunneled Vascular Access Device from Trunk Subcutaneous Tissue and Fascia, Open Approach (ICD-10-PCS; 2018-04-20)
DX: E11.69 Type 2 diabetes mellitus with other specified complication (principal); J96.01 Acute respiratory failure with hypoxia; L03.115 Cellulitis of right lower limb; M86.171 Other acute osteomyelitis, right ankle and foot; M33.13 Other dermatomyositis without myopathy; E46 Unspecified protein-calorie malnutrition; I13.2 Hypertensive heart and chronic kidney disease with heart failure and with stage 5 chronic kidney disease, or end stage renal disease; I50.42 Chronic combined systolic (congestive) and diastolic (congestive) heart failure; Z99.11 Dependence on respirator [ventilator] status; L97.819 Non-pressure chronic ulcer of other part of right lower leg with unspecified severity; N18.6 End stage renal disease; K21.9 Gastro-esophageal reflux disease without esophagitis; L97.519 Non-pressure chronic ulcer of other part of right foot with unspecified severity; L03.031 Cellulitis of right toe; Z99.2 Dependence on renal dialysis; Z93.0 Tracheostomy status; B95.62 Methicillin resistant Staphylococcus aureus infection as the cause of diseases classified elsewhere; D63.1 Anemia in chronic kidney disease; E11.22 Type 2 diabetes mellitus with diabetic chronic kidney disease; E11.51 Type 2 diabetes mellitus with diabetic peripheral angiopathy without gangrene; E11.621 Type 2 diabetes mellitus with foot ulcer; E78.5 Hyperlipidemia, unspecified; F41.9 Anxiety disorder, unspecified; H35.30 Unspecified macular degeneration; I07.1 Rheumatic tricuspid insufficiency; I27.20 Pulmonary hypertension, unspecified; I34.0 Nonrheumatic mitral (valve) insufficiency; I35.8 Other nonrheumatic aortic valve disorders; I77.1 Stricture of artery; I99.8 Other disorder of circulatory system; N25.0 Renal osteodystrophy; N26.9 Renal sclerosis, unspecified; R13.10 Dysphagia, unspecified; Z83.1 Family history of other infectious and parasitic diseases; Z83.3 Family history of diabetes mellitus; Z86.14 Personal history of Methicillin resistant Staphylococcus aureus infection; Z86.73 Personal history of transient ischemic attack (TIA), and cerebral infarction without residual deficits; Z89.421 Acquired absence of other right toe(s); Z91.15 Patient's noncompliance with renal dialysis; Z68.23 Body mass index [BMI] 23.0-23.9, adult
CPT/HCPCS: 36415; 36558; 36569; 36589; 36600; 37224; 71045; 71275; 75710; 76937; 77001; 80048; 80053; 80069; 80202; 82306; 82550; 82728; 82803; 82962; 83036; 83540; 83550; 83605; 83735; 83970; 84100; 84145; 85025; 85651; 86140; 86705; 86706; 86803; 87040; 87070; 87075; 87077; 87147; 87176; 87186; 87205; 87340; 93005; 93306; 93922; 93926; 96365; 99156; 99157; G0378; J0295; J0881; J1100; J1644; J1940; J2250; J2405; J2704; J2710; J2720; J2997; J3010; J3370; J3490; Q9967; C1750; C1751; C1760; C1769; C1894; C2623; J1642; J1815; J2310; J7050

== ENCOUNTER 2018-04-27 14:38 | Outpatient (CLI) | payer MEDICARE ==
[~2018-04-27 14:38] MED LIST changes: +CIPR500T87 PO; +DAPT500V6 IV; +DOCU-131 PO; +FENTANYL PF 100 MCG/2ML ONE; +MIDAZOLAM 1 MG/ML, 5ML ONE
== END 2018-04-27 23:59 | disposition home or self-care (01) ==
LOC: WOUND 14:38
PROVIDERS: ATTEND Podiatrist Foot & Ankle Surgery
DX: E11.621 Type 2 diabetes mellitus with foot ulcer (principal); L97.511 Non-pressure chronic ulcer of other part of right foot limited to breakdown of skin; E11.69 Type 2 diabetes mellitus with other specified complication; M86.171 Other acute osteomyelitis, right ankle and foot; E11.40 Type 2 diabetes mellitus with diabetic neuropathy, unspecified; M86.071 Acute hematogenous osteomyelitis, right ankle and foot; E11.51 Type 2 diabetes mellitus with diabetic peripheral angiopathy without gangrene; I12.0 Hypertensive chronic kidney disease with stage 5 chronic kidney disease or end stage renal disease; E11.22 Type 2 diabetes mellitus with diabetic chronic kidney disease; N18.6 End stage renal disease; E78.5 Hyperlipidemia, unspecified; F41.9 Anxiety disorder, unspecified; K21.9 Gastro-esophageal reflux disease without esophagitis; I25.10 Atherosclerotic heart disease of native coronary artery without angina pectoris; B95.62 Methicillin resistant Staphylococcus aureus infection as the cause of diseases classified elsewhere; Z89.421 Acquired absence of other right toe(s); Z86.73 Personal history of transient ischemic attack (TIA), and cerebral infarction without residual deficits
CPT/HCPCS: 97597; J2250; J3010

== ENCOUNTER → 2018-05-04 | Outpatient (CLI) | payer MEDICARE ==
[~2018-05-04] MED LIST changes: -FENTANYL PF 100 MCG/2ML ONE; -MIDAZOLAM 1 MG/ML, 5ML ONE
== END | disposition home or self-care (01) ==
LOC: WOUND 10:17
PROVIDERS: ATTEND Internal Medicine
DX: E11.621 Type 2 diabetes mellitus with foot ulcer (principal); L97.511 Non-pressure chronic ulcer of other part of right foot limited to breakdown of skin; E11.69 Type 2 diabetes mellitus with other specified complication; M86.171 Other acute osteomyelitis, right ankle and foot; M86.071 Acute hematogenous osteomyelitis, right ankle and foot; E11.51 Type 2 diabetes mellitus with diabetic peripheral angiopathy without gangrene; E11.40 Type 2 diabetes mellitus with diabetic neuropathy, unspecified; I13.2 Hypertensive heart and chronic kidney disease with heart failure and with stage 5 chronic kidney disease, or end stage renal disease; E11.22 Type 2 diabetes mellitus with diabetic chronic kidney disease; N18.6 End stage renal disease; I50.42 Chronic combined systolic (congestive) and diastolic (congestive) heart failure; E78.5 Hyperlipidemia, unspecified; F41.9 Anxiety disorder, unspecified; K21.9 Gastro-esophageal reflux disease without esophagitis; I25.10 Atherosclerotic heart disease of native coronary artery without angina pectoris; B95.62 Methicillin resistant Staphylococcus aureus infection as the cause of diseases classified elsewhere; Z89.421 Acquired absence of other right toe(s); Z99.2 Dependence on renal dialysis; Z86.711 Personal history of pulmonary embolism; Z86.73 Personal history of transient ischemic attack (TIA), and cerebral infarction without residual deficits
CPT/HCPCS: G0463

== ENCOUNTER → 2018-05-09 | Outpatient (CLI) | payer MEDICARE | END | disposition home or self-care (01) | LOC: WOUND 09:40 | PROVIDERS: ATTEND Family Medicine | DX: T87.89 Other complications of amputation stump (principal); E11.51 Type 2 diabetes mellitus with diabetic peripheral angiopathy without gangrene; E11.40 Type 2 diabetes mellitus with diabetic neuropathy, unspecified; E11.69 Type 2 diabetes mellitus with other specified complication; M86.171 Other acute osteomyelitis, right ankle and foot; E11.21 Type 2 diabetes mellitus with diabetic nephropathy; I13.11 Hypertensive heart and chronic kidney disease without heart failure, with stage 5 chronic kidney disease, or end stage renal disease; E11.22 Type 2 diabetes mellitus with diabetic chronic kidney disease; N18.6 End stage renal disease; M86.071 Acute hematogenous osteomyelitis, right ankle and foot; B95.62 Methicillin resistant Staphylococcus aureus infection as the cause of diseases classified elsewhere; F41.9 Anxiety disorder, unspecified; E78.5 Hyperlipidemia, unspecified; K21.9 Gastro-esophageal reflux disease without esophagitis; I25.10 Atherosclerotic heart disease of native coronary artery without angina pectoris; Z99.2 Dependence on renal dialysis; Z86.711 Personal history of pulmonary embolism; Z89.421 Acquired absence of other right toe(s); Z86.73 Personal history of transient ischemic attack (TIA), and cerebral infarction without residual deficits; Y83.5 Amputation of limb(s) as the cause of abnormal reaction of the patient, or of later complication, without mention of misadventure at the time of the procedure | CPT/HCPCS: G0463 ==

== ENCOUNTER 2018-08-05 11:33 | Emergency (ER) | payer MEDICARE ==
[~2018-08-05] VITALS: Ht 167.6 cm; Wt 71.0 kg
--- NOTE | 2018-08-05 12:00 | NUR ---
pt presents to ED, sent from PCP [facility]. pt has c/o intermittent left leg pain with walking since 04/2018, being followed by vascular specialist Kelly, pt has hx PAD. pt also notes pain and lesion 3rd toe of left foot, worse for last 1.5 weeks. pt ambulatory to room with steady gait. awaiting MD and orders at this time.
--- NOTE | 2018-08-05 12:27 | NUR ---
Pt seen and examined by YEISON Mena, RN unable to palpate left dorsalis pedis pulse, however pulse was ausculated with doppler. MD Mena notified. Right dorsalis pedis pulse palpated +4. both feet pink warm and dry, cap refill <3 sec. 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 Pt in radiology at this time.
[2018-08-05] MEDS ORDERED: SODIUM CHLORIDE FLUSH 10ML SYR IVF ONE (12:30)
--- NOTE | 2018-08-05 12:54 | NUR ---
Pt back from xray, a&o, resps even and unlabored, denies pain. awaiting labs and xr results and this time.
[2018-08-05 12:55] LABS: BASOPHILS # (AUTO) 0.05 x10^3/uL (0-0.1); BASOPHILS % (AUTO) 1 % (0-1); EOSINOPHILS # (AUTO) 0.08 x10^3/uL (0-0.4); EOSINOPHILS % (AUTO) 1 % (1-7); LYMPHOCYTES # (AUTO) 2.32 x10^3/uL (1-3.4); LYMPHOCYTES % (AUTO) 26 % (22-44); MD NO; MEAN CORPUSCULAR HEMOGLOBIN 30.3 pg (27.0-34.8); MEAN CORPUSCULAR HGB CONC 33.3 g/dL (32.4-35.8); MEAN CORPUSCULAR VOLUME 90.8 fL (80-100); MEAN PLATELET VOLUME 7.8 fL (7.4-10.4); MONOCYTES # (AUTO) 0.58 x10^3/uL (0.2-0.8); MONOCYTES % (AUTO) 7 % (2-9); NEUTROPHILS % (AUTO) 66 % (42-75); PLATELET COUNT 294 x10^3/uL (130-400); RED BLOOD COUNT 3.75 x10^6/uL (3.82-5.3); RED CELL DISTRIBUTION WIDTH 15.6 % (9.6-15.2)
--- NOTE | 2018-08-05 12:56 | NUR ---
EDMD Rajesh at bedside to update pt with POC and results. EDMD notified of bp 130/45 auscultated manually.
[2018-08-05 13:05] LABS: ALANINE AMINOTRANSFERASE 21 U/L (12-78); ALBUMIN 3.7 g/dL (3.4-5.0); ANION GAP 10 mmol/L (5-15); CALCIUM 9.4 mg/dL (8.5-10.1); CHLORIDE 103 mmol/L (98-107); CREATININE 4.13 mg/dL (0.55-1.02)
[2018-08-05 13:07] LABS: ALKALINE PHOSPHATASE 104 U/L (45-117); BILIRUBIN,TOTAL 0.5 mg/dL (0.2-1.0); TOTAL PROTEIN 7.9 g/dL (6.4-8.2)
[2018-08-05 13:23] LABS: HCT (SEDRATE) 34.1 % (34.6-47.8)
--- NOTE | 2018-08-05 13:48 | NUR ---
pt resting on gurney, resps even and unlabored. nadn. awaiting further orders at this time.
--- NOTE | 2018-08-05 14:00 | NUR ---
late entry d/t patient care: pt educated by YEISON Mena regarding results and MD recommendations. MD recommended admission for osteomyelitis tx. pt verbalizes understanding but refuses admission.
[2018-08-05 14:23] VITALS: BP 151/52
--- NOTE | 2018-08-05 14:57 | NUR ---
pt given dc instructions and script. pt educated regarding augmentin rx. wound care provided to pt's toe, dressing placed by RN. pt a&o, resps even and unlabored, nadn at dc. pt amb to dc desk with steady gait. all questions answered.
== END 2018-08-05 14:52 | disposition home or self-care (01) ==
LOC: ED 12:17
DX: M86.172 Other acute osteomyelitis, left ankle and foot (principal); K21.9 Gastro-esophageal reflux disease without esophagitis; E11.9 Type 2 diabetes mellitus without complications; I11.0 Hypertensive heart disease with heart failure; I50.9 Heart failure, unspecified; E11.65 Type 2 diabetes mellitus with hyperglycemia; E78.5 Hyperlipidemia, unspecified; Z90.89 Acquired absence of other organs; Z86.73 Personal history of transient ischemic attack (TIA), and cerebral infarction without residual deficits
CPT/HCPCS: 36415; 80053; 85025; 85651; 86140; 99284

== ENCOUNTER → 2018-09-05 | Outpatient (CLI) | payer MEDICARE | END | disposition home or self-care (01) | LOC: CVU 14:30 | PROVIDERS: ATTEND Surgery | DX: I70.203 Unspecified atherosclerosis of native arteries of extremities, bilateral legs (principal); E11.9 Type 2 diabetes mellitus without complications; Z88.5 Allergy status to narcotic agent; Z99.2 Dependence on renal dialysis | CPT/HCPCS: 93922; 93925 ==

== ENCOUNTER 2018-09-07 08:33 | Outpatient (CLI) | payer MEDICARE ==
[~2018-09-07 08:33] MED LIST changes: +REGADENOSON 0.4 MG/5 ML SYRINGE ONE
== END 2018-09-07 23:59 | disposition home or self-care (01) ==
LOC: CFH 08:33
PROVIDERS: ATTEND Internal Medicine Cardiovascular Disease
DX: Z01.810 Encounter for preprocedural cardiovascular examination (principal); M79.672 Pain in left foot; I77.9 Disorder of arteries and arterioles, unspecified
CPT/HCPCS: 78452; 93017; A9502; J2785

== ENCOUNTER 2018-09-24 14:57 | Emergency (ER) | payer MEDICARE ==
[~2018-09-24] VITALS: Ht 167.6 cm; Wt 71.4 kg
[~2018-09-24 14:57] MED LIST changes: -REGADENOSON 0.4 MG/5 ML SYRINGE ONE
[2018-09-24] MEDS ORDERED: GLIM4TAB2 PO (15:18)
--- NOTE | 2018-09-24 15:21 | NUR ---
PT ARRIVED VIA [facility]. PICKED UP FROM POST OFFICE AFTER DESCRIBED NEAR [place] EVENT. HYPOTENSIVE WHEN CHECKED BY [facility]. PT STATES SHE "FEELS BETTER" AT THIS TIME. WAS DIZZY DURING EVENT. VSS. DARRELN. CALL LIGHT IN REACH. MONITORS IN PLACE. RESTING ON GURNEY.
[2018-09-24 15:33] LABS: BASOPHILS # (AUTO) 0.05 x10^3/uL (0-0.1); BASOPHILS % (AUTO) 1 % (0-1); EOSINOPHILS # (AUTO) 0.05 x10^3/uL (0-0.4); EOSINOPHILS % (AUTO) 1 % (1-7); LYMPHOCYTES # (AUTO) 1.58 x10^3/uL (1-3.4); LYMPHOCYTES % (AUTO) 26 % (22-44); MD NO; MEAN CORPUSCULAR HGB CONC 32.6 g/dL (32.4-35.8); MEAN CORPUSCULAR VOLUME 98.1 fL (80-100); MEAN PLATELET VOLUME 7.9 fL (7.4-10.4); MONOCYTES # (AUTO) 0.38 x10^3/uL (0.2-0.8); MONOCYTES % (AUTO) 6 % (2-9); NEUTROPHILS % (AUTO) 66 % (42-75); PLATELET COUNT 217 x10^3/uL (130-400); RED CELL DISTRIBUTION WIDTH 17.4 % (9.6-15.2)
[2018-09-24 15:37] LABS: ALBUMIN 3.6 g/dL (3.4-5.0); ANION GAP 6 mmol/L (5-15); CALCIUM 8.8 mg/dL (8.5-10.1); CHLORIDE 100 mmol/L (98-107); CREATININE 2.44 mg/dL (0.55-1.02)
[2018-09-24 16:02] VITALS: BP 167/45
--- NOTE | 2018-09-24 16:02 | NUR ---
PT RESTING ON [facility]. UPDATED ON POC RE:D/C. DEVIN. VSS. CALL LIGHT IN REACH.
== END 2018-09-24 16:18 | disposition home or self-care (01) ==
LOC: ED 15:55
DX: R55 Syncope and collapse (principal); I11.0 Hypertensive heart disease with heart failure; I50.9 Heart failure, unspecified; K21.9 Gastro-esophageal reflux disease without esophagitis; E11.65 Type 2 diabetes mellitus with hyperglycemia; E78.5 Hyperlipidemia, unspecified; Z86.73 Personal history of transient ischemic attack (TIA), and cerebral infarction without residual deficits
CPT/HCPCS: 36415; 80048; 82040; 85025; 93005; 99284

== ENCOUNTER 2018-10-24 06:00 | Day surgery (SDC) | payer MEDICARE ==
[~2018-10-24] VITALS: Ht 167.6 cm; Wt 73.1 kg
[2018-10-24 07:40] VITALS: BP 125/73
== END 2018-10-24 12:10 | disposition home or self-care (01) ==
LOC: OUT 06:00
PROVIDERS: ATTEND Surgery
DX: I70.212 Atherosclerosis of native arteries of extremities with intermittent claudication, left leg (principal); I70.245 Atherosclerosis of native arteries of left leg with ulceration of other part of foot; L97.529 Non-pressure chronic ulcer of other part of left foot with unspecified severity; E11.22 Type 2 diabetes mellitus with diabetic chronic kidney disease; I12.0 Hypertensive chronic kidney disease with stage 5 chronic kidney disease or end stage renal disease; N18.6 End stage renal disease; Z99.2 Dependence on renal dialysis; Z79.84 Long term (current) use of oral hypoglycemic drugs; Z79.02 Long term (current) use of antithrombotics/antiplatelets; Z79.899 Other long term (current) drug therapy
CPT/HCPCS: 37225; 37228; 75625; 75710; 76937; 99156; 99157; C1714; C1725; C1760; C1769; C1884; C1894; J1644; J2250; J2720; J3010; Q9966; 37233; J2310

== ENCOUNTER → 2019-02-07 | Outpatient (CLI) | payer MEDICARE ==
[~2019-02-07] MED LIST changes: -ACET-1757 PO; +ACET-2065 PO; -BISA10SU2 PR; +BISA10SU4 PR; +CLOP75TA52 PO; -GLIM2TAB2 PO; +GLIM2TAB3 PO; +GLIM4TAB4 PO; +LINE600T12 PO; -LINE600T37 PO; +LOSA50TA14 PO
== END | disposition home or self-care (01) ==
LOC: CVU 14:53
PROVIDERS: ATTEND Surgery
DX: I70.213 Atherosclerosis of native arteries of extremities with intermittent claudication, bilateral legs (principal); I50.9 Heart failure, unspecified; E78.5 Hyperlipidemia, unspecified; E11.22 Type 2 diabetes mellitus with diabetic chronic kidney disease; I13.2 Hypertensive heart and chronic kidney disease with heart failure and with stage 5 chronic kidney disease, or end stage renal disease; N18.6 End stage renal disease; Z99.2 Dependence on renal dialysis; E11.319 Type 2 diabetes mellitus with unspecified diabetic retinopathy without macular edema; Z79.899 Other long term (current) drug therapy; Z88.8 Allergy status to other drugs, medicaments and biological substances; Z84.89 Family history of other specified conditions; Z82.5 Family history of asthma and other chronic lower respiratory diseases; Z83.3 Family history of diabetes mellitus; Z82.49 Family history of ischemic heart disease and other diseases of the circulatory system
CPT/HCPCS: 93922; 93925

== ENCOUNTER → 2019-03-13 | Outpatient (CLI) | payer MEDICARE | END | disposition home or self-care (01) | LOC: CFH 10:00 | PROVIDERS: ATTEND Internal Medicine | DX: Z12.31 Encounter for screening mammogram for malignant neoplasm of breast (principal) | CPT/HCPCS: 77067 ==

== ENCOUNTER 2019-06-18 18:28 | Emergency (ER) | payer MEDICARE ==
[~2019-06-18] VITALS: Ht 167.6 cm; Wt 74.7 kg
[~2019-06-18 18:28] MED LIST changes: -GLIM2TAB3 PO; +GLIM2TAB7 PO; -GLIM4TAB4 PO; +GLIM4TAB8 PO; -PYRI100T2 PO; +PYRI100T9 PO
--- NOTE | 2019-06-18 19:04 | NUR ---
THIS IS A 73 YO FEMALE WHO PRESENTS TO THE ER C/O INCREASING SOB AND COUGH X THE LAST FEW DAYS. PT DENIES ANY RECENT TRAVEL OR CONTACT WITH SICK PEOPLE. PT AFEBRILE. PT HAS HX OF CHF AND DIALYSIS. PT AO X 4. SKIN SLIGHTLY PALE, WARM AND DRY. RESP EVEN AND UNLABORED. LUNGS CLEAR WITH DIMINISHED BASES. PT ON CONT BP AND O2 MONITORS. ERMD KELLY AT BEDSIDE FOR EVAL. PT AWARE WE ARE WAITING FOR LAB/IMAGING RESULTS. CALL LIGHT WITHIN REACH. WILL CONT TO MONITOR PT. Addendum: 06/18/19 at 2108 by ANIKA THIS IS A 73 YO FEMALE WHO PRESENTS TO THE ER C/O INCREASING SOB AND COUGH X THE LAST FEW DAYS. PT DENIES ANY RECENT TRAVEL OR CONTACT WITH SICK PEOPLE. PT HAS HX OF CHF AND DIALYSIS. PT AO X 4. SKIN SLIGHTLY PALE, WARM AND DRY. RESP EVEN AND UNLABORED. LUNGS CLEAR WITH DIMINISHED BASES. PT ON CONT BP AND O2 MONITORS. ERMD KELLY AT BEDSIDE FOR EVAL. PT AWARE WE ARE WAITING FOR LAB/IMAGING RESULTS. CALL LIGHT WITHIN REACH. WILL CONT TO MONITOR PT.
[2019-06-18] MEDS ORDERED: VITAMIN A PO (19:12)
[2019-06-18] MEDS ORDERED: ASCO10004 PO (19:12)
[2019-06-18] MEDS ORDERED: MULT-709 PO (19:12)
[2019-06-18] MEDS ORDERED: GLIM4TAB8 PO (19:12)
[2019-06-18 19:23] LABS: BASOPHILS # (AUTO) 0.02 x10^3/uL (0-0.1); BASOPHILS % (AUTO) 0 % (0-1); EOSINOPHILS # (AUTO) 0.19 x10^3/uL (0-0.4); EOSINOPHILS % (AUTO) 2 % (1-7); LYMPHOCYTES # (AUTO) 2.17 x10^3/uL (1-3.4); LYMPHOCYTES % (AUTO) 23 % (22-44); MD NO; MEAN CORPUSCULAR HEMOGLOBIN 30.9 pg (27.0-34.8); MEAN CORPUSCULAR HGB CONC 33.4 g/dL (32.4-35.8); MEAN CORPUSCULAR VOLUME 92.3 fL (80-100); MEAN PLATELET VOLUME 7.9 fL (7.4-10.4); MONOCYTES % (AUTO) 7 % (2-9); NEUTROPHILS # (AUTO) 6.56 x10^3/uL (1.8-6.8); NEUTROPHILS % (AUTO) 68 % (42-75); PLATELET COUNT 299 x10^3/uL (130-400); RED BLOOD COUNT 2.49 x10^6/uL (3.82-5.3); RED CELL DISTRIBUTION WIDTH 16.9 % (9.6-15.2)
[2019-06-18 19:35] LABS: ANION GAP 9 mmol/L (5-15); CHLORIDE 103 mmol/L (98-107); CREATININE 4.54 mg/dL (0.55-1.02)
--- NOTE | 2019-06-18 20:04 | NUR ---
RT WAS AT BEDSIDE FOR EVAL. PT DENIES ANY ISSUES/SPUTUM FROM [facility], REPORTING SHE IS COUGHING UP CLEAR SPUTUM. PT AO X 4. SKIN PWD. RESP EVEN AND UNLABORED. PT AWARE WE ARE WAITING FOR LAB/IMAGING RESULTS. PT DENIES NEEDS AT THIS TIME. CALL LIGHT WITHIN REACH. WILL CONT TO MONITOR PT.
--- NOTE | 2019-06-18 21:10 | NUR ---
PT 85-87% ON RA. PT REFUSED TO LET RN REPLACE O2 MASK STATING "I DON'T WANT ANY OF THAT STUFF. I'M USUALLY ONLY LIKE 90". RN OFFERED NASAL CANNULA AND SIMPLE MASK. PT REFUSED BOTH. RN REITERATED THAT PT'S SPO2 WAS LOW. GRACED LETICIA AT BEDSIDE TO DISCUSS POC AND OFFERED ADMISSION. PT REFUSED. NEPHRO AWARE OF LABS AND PT IS TO F/U WITH THEM TOMORROW. PT VERBALIZES AGREEMENT TO DO THIS AND UNDERSTANDING OF RISKS OF NOT BEING ADMITTED UP TO AND INCLUDING WORSENING FLUID RETENTION AND RESPIRATORY DISTRESS UP TO AND INCLUDING .
[2019-06-18 21:18] VITALS: BP 155/47
--- NOTE | 2019-06-18 21:18 | NUR ---
PT'S SPO2 89-90 WITH PPE MASK OFF. PT STATES "I CAN BREATHE BETTER WITHOUT IT".
[2019-06-18] MEDS ORDERED: BENZONATATE 100 MG CAPSULE ONE (21:21)
[2019-06-18] MEDS ORDERED: BENZONATATE 100 MG CAPSULE PO ONE (21:30)
== END 2019-06-18 21:48 | disposition home or self-care (01) ==
LOC: ED 20:09
DX: I13.2 Hypertensive heart and chronic kidney disease with heart failure and with stage 5 chronic kidney disease, or end stage renal disease (principal); E11.22 Type 2 diabetes mellitus with diabetic chronic kidney disease; N18.6 End stage renal disease; I50.42 Chronic combined systolic (congestive) and diastolic (congestive) heart failure; Z99.2 Dependence on renal dialysis; J06.9 Acute upper respiratory infection, unspecified; K21.9 Gastro-esophageal reflux disease without esophagitis; E11.65 Type 2 diabetes mellitus with hyperglycemia; I77.6 Arteritis, unspecified; R94.31 Abnormal electrocardiogram [ECG] [EKG]; I51.7 Cardiomegaly; Z93.0 Tracheostomy status; Z90.89 Acquired absence of other organs; Z86.73 Personal history of transient ischemic attack (TIA), and cerebral infarction without residual deficits
CPT/HCPCS: 36415; 71046; 80048; 82040; 83880; 85025; 93005; 99285

== ENCOUNTER → 2020-01-29 | Outpatient (CLI) | payer MEDICARE ==
[~2020-01-29] MED LIST changes: +ASCO100018 PO; +MULT-709 PO; +VITAMIN A PO
== END | disposition home or self-care (01) ==
LOC: CVU 06:43
PROVIDERS: ATTEND Surgery
DX: I70.213 Atherosclerosis of native arteries of extremities with intermittent claudication, bilateral legs (principal)
CPT/HCPCS: 93922; 93925

== ENCOUNTER → 2020-03-11 | Outpatient (CLI) | payer MEDICARE | END | disposition home or self-care (01) | LOC: WOUND 08:24 | PROVIDERS: ATTEND Internal Medicine | DX: E11.621 Type 2 diabetes mellitus with foot ulcer (principal); I70.235 Atherosclerosis of native arteries of right leg with ulceration of other part of foot; L97.511 Non-pressure chronic ulcer of other part of right foot limited to breakdown of skin; I70.212 Atherosclerosis of native arteries of extremities with intermittent claudication, left leg; L84 Corns and callosities; E11.65 Type 2 diabetes mellitus with hyperglycemia; E11.40 Type 2 diabetes mellitus with diabetic neuropathy, unspecified; E11.319 Type 2 diabetes mellitus with unspecified diabetic retinopathy without macular edema; G25.81 Restless legs syndrome; E11.51 Type 2 diabetes mellitus with diabetic peripheral angiopathy without gangrene; E78.5 Hyperlipidemia, unspecified; I25.10 Atherosclerotic heart disease of native coronary artery without angina pectoris; E11.69 Type 2 diabetes mellitus with other specified complication; M86.8X7 Other osteomyelitis, ankle and foot; E11.21 Type 2 diabetes mellitus with diabetic nephropathy; E11.22 Type 2 diabetes mellitus with diabetic chronic kidney disease; I13.2 Hypertensive heart and chronic kidney disease with heart failure and with stage 5 chronic kidney disease, or end stage renal disease; N18.6 End stage renal disease; I50.30 Unspecified diastolic (congestive) heart failure; Z86.14 Personal history of Methicillin resistant Staphylococcus aureus infection; Z98.62 Peripheral vascular angioplasty status; Z99.2 Dependence on renal dialysis | CPT/HCPCS: 97597; G0463 ==

== ENCOUNTER → 2020-03-18 | Outpatient (CLI) | payer MEDICARE | END | disposition home or self-care (01) | LOC: WOUND 08:51 | PROVIDERS: ATTEND Internal Medicine | DX: E11.621 Type 2 diabetes mellitus with foot ulcer (principal); I70.235 Atherosclerosis of native arteries of right leg with ulceration of other part of foot; L97.512 Non-pressure chronic ulcer of other part of right foot with fat layer exposed; I70.212 Atherosclerosis of native arteries of extremities with intermittent claudication, left leg; L84 Corns and callosities; E11.65 Type 2 diabetes mellitus with hyperglycemia; E11.40 Type 2 diabetes mellitus with diabetic neuropathy, unspecified; E11.319 Type 2 diabetes mellitus with unspecified diabetic retinopathy without macular edema; G25.81 Restless legs syndrome; E11.51 Type 2 diabetes mellitus with diabetic peripheral angiopathy without gangrene; E78.5 Hyperlipidemia, unspecified; I25.10 Atherosclerotic heart disease of native coronary artery without angina pectoris; E11.69 Type 2 diabetes mellitus with other specified complication; M86.8X7 Other osteomyelitis, ankle and foot; E11.21 Type 2 diabetes mellitus with diabetic nephropathy; E11.22 Type 2 diabetes mellitus with diabetic chronic kidney disease; I13.2 Hypertensive heart and chronic kidney disease with heart failure and with stage 5 chronic kidney disease, or end stage renal disease; N18.6 End stage renal disease; I50.30 Unspecified diastolic (congestive) heart failure; Z86.14 Personal history of Methicillin resistant Staphylococcus aureus infection; Z98.62 Peripheral vascular angioplasty status; Z99.2 Dependence on renal dialysis | CPT/HCPCS: 11042 ==

== ENCOUNTER → 2020-04-01 | Outpatient (CLI) | payer MEDICARE | END | disposition home or self-care (01) | LOC: WOUND 10:01 | PROVIDERS: ATTEND Internal Medicine | DX: E11.621 Type 2 diabetes mellitus with foot ulcer (principal); I70.235 Atherosclerosis of native arteries of right leg with ulceration of other part of foot; L97.511 Non-pressure chronic ulcer of other part of right foot limited to breakdown of skin; I70.212 Atherosclerosis of native arteries of extremities with intermittent claudication, left leg; L84 Corns and callosities; E11.65 Type 2 diabetes mellitus with hyperglycemia; E11.40 Type 2 diabetes mellitus with diabetic neuropathy, unspecified; E11.319 Type 2 diabetes mellitus with unspecified diabetic retinopathy without macular edema; G25.81 Restless legs syndrome; E11.51 Type 2 diabetes mellitus with diabetic peripheral angiopathy without gangrene; E78.5 Hyperlipidemia, unspecified; I25.10 Atherosclerotic heart disease of native coronary artery without angina pectoris; E11.69 Type 2 diabetes mellitus with other specified complication; M86.8X7 Other osteomyelitis, ankle and foot; E11.21 Type 2 diabetes mellitus with diabetic nephropathy; E11.22 Type 2 diabetes mellitus with diabetic chronic kidney disease; I13.2 Hypertensive heart and chronic kidney disease with heart failure and with stage 5 chronic kidney disease, or end stage renal disease; N18.6 End stage renal disease; I50.30 Unspecified diastolic (congestive) heart failure; Z86.14 Personal history of Methicillin resistant Staphylococcus aureus infection; Z98.62 Peripheral vascular angioplasty status; Z99.2 Dependence on renal dialysis | CPT/HCPCS: 97597 ==

== ENCOUNTER 2020-04-08 09:50 | Outpatient (CLI) | payer MEDICARE | END 2020-04-08 23:59 | disposition home or self-care (01) | LOC: WOUND 09:50 | PROVIDERS: ATTEND Internal Medicine | DX: E11.621 Type 2 diabetes mellitus with foot ulcer (principal); I70.235 Atherosclerosis of native arteries of right leg with ulceration of other part of foot; L97.511 Non-pressure chronic ulcer of other part of right foot limited to breakdown of skin; E11.65 Type 2 diabetes mellitus with hyperglycemia; E11.51 Type 2 diabetes mellitus with diabetic peripheral angiopathy without gangrene; E11.40 Type 2 diabetes mellitus with diabetic neuropathy, unspecified; L84 Corns and callosities; E11.22 Type 2 diabetes mellitus with diabetic chronic kidney disease; I13.2 Hypertensive heart and chronic kidney disease with heart failure and with stage 5 chronic kidney disease, or end stage renal disease; I50.30 Unspecified diastolic (congestive) heart failure; N18.6 End stage renal disease; E78.5 Hyperlipidemia, unspecified; I25.10 Atherosclerotic heart disease of native coronary artery without angina pectoris; E11.69 Type 2 diabetes mellitus with other specified complication; M86.8X7 Other osteomyelitis, ankle and foot; I70.202 Unspecified atherosclerosis of native arteries of extremities, left leg; Z86.14 Personal history of Methicillin resistant Staphylococcus aureus infection; Z99.2 Dependence on renal dialysis; Z93.0 Tracheostomy status; Z95.820 Peripheral vascular angioplasty status with implants and grafts | CPT/HCPCS: 97597 ==

== ENCOUNTER → 2020-04-22 | Outpatient (CLI) | payer MEDICARE | END | disposition home or self-care (01) | LOC: WOUND 09:52 | PROVIDERS: ATTEND Internal Medicine | DX: E11.621 Type 2 diabetes mellitus with foot ulcer (principal); I70.235 Atherosclerosis of native arteries of right leg with ulceration of other part of foot; L97.512 Non-pressure chronic ulcer of other part of right foot with fat layer exposed; E11.65 Type 2 diabetes mellitus with hyperglycemia; E11.51 Type 2 diabetes mellitus with diabetic peripheral angiopathy without gangrene; E11.40 Type 2 diabetes mellitus with diabetic neuropathy, unspecified; L84 Corns and callosities; E11.22 Type 2 diabetes mellitus with diabetic chronic kidney disease; I13.2 Hypertensive heart and chronic kidney disease with heart failure and with stage 5 chronic kidney disease, or end stage renal disease; I50.30 Unspecified diastolic (congestive) heart failure; N18.6 End stage renal disease; E78.5 Hyperlipidemia, unspecified; I25.10 Atherosclerotic heart disease of native coronary artery without angina pectoris; E11.69 Type 2 diabetes mellitus with other specified complication; M86.8X7 Other osteomyelitis, ankle and foot; I70.202 Unspecified atherosclerosis of native arteries of extremities, left leg; Z86.14 Personal history of Methicillin resistant Staphylococcus aureus infection; Z99.2 Dependence on renal dialysis; Z93.0 Tracheostomy status | CPT/HCPCS: 11042 ==

== ENCOUNTER 2020-05-05 08:36 | Emergency (ER) | payer MEDICARE ==
[~2020-05-05] VITALS: Ht 167.6 cm; Wt 74.5 kg
[~2020-05-05 08:36] MED LIST changes: -LISI40TA PO; +LISI40TA9 PO; -OXYC5TAB3 PO; +OXYC5TAB98 PO
[2020-05-05 10:04] LABS: ALBUMIN 3.5 g/dL (3.4-5.0); ANION GAP 6 mmol/L (5-15); CALCIUM 9.2 mg/dL (8.5-10.1); CHLORIDE 105 mmol/L (98-107); CREATININE 3.51 mg/dL (0.55-1.02)
[2020-05-05 10:06] LABS: BASOPHILS % (AUTO) 1 % (0-1); EOSINOPHILS % (AUTO) 1 % (1-7); LYMPHOCYTES % (AUTO) 23 % (22-44); MD NO; MEAN CORPUSCULAR HEMOGLOBIN 31.7 pg (27.0-34.8); MEAN CORPUSCULAR HGB CONC 33.6 g/dL (32.4-35.8); MONOCYTES % (AUTO) 8 % (2-9); NEUTROPHILS % (AUTO) 67 % (42-75); PLATELET COUNT 232 x10^3/uL (130-400); RED BLOOD COUNT 3.06 x10^6/uL (3.82-5.3); RED CELL DISTRIBUTION WIDTH 14.8 % (9.6-15.2)
[2020-05-05 11:58] VITALS: BP 169/70
== END 2020-05-05 12:00 ==
LOC: ED 09:33
DX: E11.3393 Type 2 diabetes mellitus with moderate nonproliferative diabetic retinopathy without macular edema, bilateral (principal); I13.0 Hypertensive heart and chronic kidney disease with heart failure and stage 1 through stage 4 chronic kidney disease, or unspecified chronic kidney disease; I50.9 Heart failure, unspecified; E11.65 Type 2 diabetes mellitus with hyperglycemia; E11.22 Type 2 diabetes mellitus with diabetic chronic kidney disease; N18.9 Chronic kidney disease, unspecified; Z99.2 Dependence on renal dialysis; K21.9 Gastro-esophageal reflux disease without esophagitis; E78.5 Hyperlipidemia, unspecified; Z86.73 Personal history of transient ischemic attack (TIA), and cerebral infarction without residual deficits; Z90.89 Acquired absence of other organs
CPT/HCPCS: 36415; 80048; 82040; 82962; 85025; 99283

== ENCOUNTER → 2020-05-06 | Outpatient (CLI) | payer MEDICARE ==
[~2020-05-06] MED LIST changes: -ALPR0.5T6 PO; +ALPR0.5T93 PO
== END | disposition home or self-care (01) ==
LOC: WOUND 10:01
PROVIDERS: ATTEND Internal Medicine
DX: E11.621 Type 2 diabetes mellitus with foot ulcer (principal); I70.235 Atherosclerosis of native arteries of right leg with ulceration of other part of foot; L97.512 Non-pressure chronic ulcer of other part of right foot with fat layer exposed; E11.65 Type 2 diabetes mellitus with hyperglycemia; E11.51 Type 2 diabetes mellitus with diabetic peripheral angiopathy without gangrene; E11.40 Type 2 diabetes mellitus with diabetic neuropathy, unspecified; L84 Corns and callosities; E11.22 Type 2 diabetes mellitus with diabetic chronic kidney disease; I70.212 Atherosclerosis of native arteries of extremities with intermittent claudication, left leg; E11.319 Type 2 diabetes mellitus with unspecified diabetic retinopathy without macular edema; E11.21 Type 2 diabetes mellitus with diabetic nephropathy; I13.2 Hypertensive heart and chronic kidney disease with heart failure and with stage 5 chronic kidney disease, or end stage renal disease; I50.30 Unspecified diastolic (congestive) heart failure; N18.6 End stage renal disease; E78.5 Hyperlipidemia, unspecified; I25.10 Atherosclerotic heart disease of native coronary artery without angina pectoris; E11.69 Type 2 diabetes mellitus with other specified complication; M86.8X7 Other osteomyelitis, ankle and foot; Z86.14 Personal history of Methicillin resistant Staphylococcus aureus infection; Z99.2 Dependence on renal dialysis; Z93.0 Tracheostomy status; Z95.820 Peripheral vascular angioplasty status with implants and grafts
CPT/HCPCS: 11042

== ENCOUNTER 2020-05-20 08:45 | Outpatient (CLI) | payer MEDICARE | END 2020-05-20 23:59 | disposition home or self-care (01) | LOC: WOUND 08:45 | PROVIDERS: ATTEND Internal Medicine | DX: E11.621 Type 2 diabetes mellitus with foot ulcer (principal); I70.235 Atherosclerosis of native arteries of right leg with ulceration of other part of foot; L97.511 Non-pressure chronic ulcer of other part of right foot limited to breakdown of skin; E11.65 Type 2 diabetes mellitus with hyperglycemia; E11.51 Type 2 diabetes mellitus with diabetic peripheral angiopathy without gangrene; E11.40 Type 2 diabetes mellitus with diabetic neuropathy, unspecified; L84 Corns and callosities; E11.22 Type 2 diabetes mellitus with diabetic chronic kidney disease; I70.212 Atherosclerosis of native arteries of extremities with intermittent claudication, left leg; E11.319 Type 2 diabetes mellitus with unspecified diabetic retinopathy without macular edema; E11.21 Type 2 diabetes mellitus with diabetic nephropathy; I13.2 Hypertensive heart and chronic kidney disease with heart failure and with stage 5 chronic kidney disease, or end stage renal disease; I50.30 Unspecified diastolic (congestive) heart failure; N18.6 End stage renal disease; E78.5 Hyperlipidemia, unspecified; I25.10 Atherosclerotic heart disease of native coronary artery without angina pectoris; E11.69 Type 2 diabetes mellitus with other specified complication; M86.8X7 Other osteomyelitis, ankle and foot; Z86.14 Personal history of Methicillin resistant Staphylococcus aureus infection; Z99.2 Dependence on renal dialysis; Z93.0 Tracheostomy status; Z95.820 Peripheral vascular angioplasty status with implants and grafts | CPT/HCPCS: 97597 ==

== ENCOUNTER 2020-05-27 09:41 | Outpatient (CLI) | payer MEDICARE | END 2020-05-27 23:59 | disposition home or self-care (01) | LOC: CFH 09:41 | PROVIDERS: ATTEND Family Medicine | DX: Z12.31 Encounter for screening mammogram for malignant neoplasm of breast (principal) | CPT/HCPCS: 77067 ==

== ENCOUNTER → 2020-06-03 | Outpatient (CLI) | payer MEDICARE | END | disposition home or self-care (01) | LOC: WOUND 10:02 | PROVIDERS: ATTEND Internal Medicine | DX: E11.621 Type 2 diabetes mellitus with foot ulcer (principal); I70.235 Atherosclerosis of native arteries of right leg with ulceration of other part of foot; L97.512 Non-pressure chronic ulcer of other part of right foot with fat layer exposed; E11.65 Type 2 diabetes mellitus with hyperglycemia; E11.51 Type 2 diabetes mellitus with diabetic peripheral angiopathy without gangrene; E11.40 Type 2 diabetes mellitus with diabetic neuropathy, unspecified; L84 Corns and callosities; E11.22 Type 2 diabetes mellitus with diabetic chronic kidney disease; I70.212 Atherosclerosis of native arteries of extremities with intermittent claudication, left leg; E11.319 Type 2 diabetes mellitus with unspecified diabetic retinopathy without macular edema; E11.21 Type 2 diabetes mellitus with diabetic nephropathy; I13.2 Hypertensive heart and chronic kidney disease with heart failure and with stage 5 chronic kidney disease, or end stage renal disease; I50.30 Unspecified diastolic (congestive) heart failure; N18.6 End stage renal disease; E78.5 Hyperlipidemia, unspecified; I25.10 Atherosclerotic heart disease of native coronary artery without angina pectoris; E11.69 Type 2 diabetes mellitus with other specified complication; M86.8X7 Other osteomyelitis, ankle and foot; K21.9 Gastro-esophageal reflux disease without esophagitis; Z86.14 Personal history of Methicillin resistant Staphylococcus aureus infection; Z99.2 Dependence on renal dialysis; Z95.820 Peripheral vascular angioplasty status with implants and grafts; Z86.73 Personal history of transient ischemic attack (TIA), and cerebral infarction without residual deficits | CPT/HCPCS: 11042 ==

== ENCOUNTER → 2020-06-17 | Outpatient (CLI) | payer MEDICARE | END | disposition home or self-care (01) | LOC: WOUND 09:47 | PROVIDERS: ATTEND Internal Medicine | DX: E11.621 Type 2 diabetes mellitus with foot ulcer (principal); I70.235 Atherosclerosis of native arteries of right leg with ulceration of other part of foot; L97.511 Non-pressure chronic ulcer of other part of right foot limited to breakdown of skin; E11.65 Type 2 diabetes mellitus with hyperglycemia; E11.51 Type 2 diabetes mellitus with diabetic peripheral angiopathy without gangrene; E11.40 Type 2 diabetes mellitus with diabetic neuropathy, unspecified; L84 Corns and callosities; E11.22 Type 2 diabetes mellitus with diabetic chronic kidney disease; I70.212 Atherosclerosis of native arteries of extremities with intermittent claudication, left leg; E11.319 Type 2 diabetes mellitus with unspecified diabetic retinopathy without macular edema; E11.21 Type 2 diabetes mellitus with diabetic nephropathy; I13.2 Hypertensive heart and chronic kidney disease with heart failure and with stage 5 chronic kidney disease, or end stage renal disease; I50.30 Unspecified diastolic (congestive) heart failure; N18.6 End stage renal disease; E78.5 Hyperlipidemia, unspecified; I25.10 Atherosclerotic heart disease of native coronary artery without angina pectoris; E11.69 Type 2 diabetes mellitus with other specified complication; M86.8X7 Other osteomyelitis, ankle and foot; Z86.14 Personal history of Methicillin resistant Staphylococcus aureus infection; Z99.2 Dependence on renal dialysis; Z93.0 Tracheostomy status; Z95.820 Peripheral vascular angioplasty status with implants and grafts | CPT/HCPCS: 97597 ==

== ENCOUNTER → 2020-07-01 | Outpatient (CLI) | payer MEDICARE | END | disposition home or self-care (01) | LOC: WOUND 10:28 | PROVIDERS: ATTEND Internal Medicine | DX: E11.621 Type 2 diabetes mellitus with foot ulcer (principal); I70.235 Atherosclerosis of native arteries of right leg with ulceration of other part of foot; L97.512 Non-pressure chronic ulcer of other part of right foot with fat layer exposed; E11.65 Type 2 diabetes mellitus with hyperglycemia; E11.51 Type 2 diabetes mellitus with diabetic peripheral angiopathy without gangrene; E11.40 Type 2 diabetes mellitus with diabetic neuropathy, unspecified; L84 Corns and callosities; E11.22 Type 2 diabetes mellitus with diabetic chronic kidney disease; I70.212 Atherosclerosis of native arteries of extremities with intermittent claudication, left leg; E11.319 Type 2 diabetes mellitus with unspecified diabetic retinopathy without macular edema; E11.21 Type 2 diabetes mellitus with diabetic nephropathy; I13.2 Hypertensive heart and chronic kidney disease with heart failure and with stage 5 chronic kidney disease, or end stage renal disease; I50.30 Unspecified diastolic (congestive) heart failure; N18.6 End stage renal disease; E78.5 Hyperlipidemia, unspecified; I25.10 Atherosclerotic heart disease of native coronary artery without angina pectoris; E11.69 Type 2 diabetes mellitus with other specified complication; M86.8X7 Other osteomyelitis, ankle and foot; K21.9 Gastro-esophageal reflux disease without esophagitis; Z86.14 Personal history of Methicillin resistant Staphylococcus aureus infection; Z99.2 Dependence on renal dialysis; Z93.0 Tracheostomy status; Z95.820 Peripheral vascular angioplasty status with implants and grafts; Z86.73 Personal history of transient ischemic attack (TIA), and cerebral infarction without residual deficits | CPT/HCPCS: 11042 ==

== ENCOUNTER 2020-07-12 08:32 | Outpatient (CLI) | payer MEDICARE ==
[~2020-07-12 08:32] MED LIST changes: +FERR324T23 PO; -FERR325T16 PO
[2020-07-12] MEDS ORDERED: OMNIPAQUE 350 MG/ML, 100ML BOTTLE ONE (09:00)
== END 2020-07-12 23:59 | disposition home or self-care (01) ==
LOC: CFH 08:32
PROVIDERS: ATTEND Nurse Practitioner Family
DX: D32.0 Benign neoplasm of cerebral meninges (principal); I65.23 Occlusion and stenosis of bilateral carotid arteries; I67.82 Cerebral ischemia; R09.89 Other specified symptoms and signs involving the circulatory and respiratory systems; I70.0 Atherosclerosis of aorta; R20.2 Paresthesia of skin
CPT/HCPCS: 70496; 70498; Q9967

== ENCOUNTER 2020-07-15 09:43 | Outpatient (CLI) | payer MEDICARE ==
[~2020-07-15 09:43] MED LIST changes: -FERR324T23 PO; +FERR325T16 PO
== END 2020-07-15 23:59 | disposition home or self-care (01) ==
LOC: WOUND 09:43
PROVIDERS: ATTEND Internal Medicine
DX: E11.621 Type 2 diabetes mellitus with foot ulcer (principal); I70.235 Atherosclerosis of native arteries of right leg with ulceration of other part of foot; L97.512 Non-pressure chronic ulcer of other part of right foot with fat layer exposed; E11.65 Type 2 diabetes mellitus with hyperglycemia; E11.51 Type 2 diabetes mellitus with diabetic peripheral angiopathy without gangrene; E11.40 Type 2 diabetes mellitus with diabetic neuropathy, unspecified; L84 Corns and callosities; I70.212 Atherosclerosis of native arteries of extremities with intermittent claudication, left leg; E11.319 Type 2 diabetes mellitus with unspecified diabetic retinopathy without macular edema; E11.21 Type 2 diabetes mellitus with diabetic nephropathy; E11.22 Type 2 diabetes mellitus with diabetic chronic kidney disease; I13.2 Hypertensive heart and chronic kidney disease with heart failure and with stage 5 chronic kidney disease, or end stage renal disease; I50.30 Unspecified diastolic (congestive) heart failure; N18.6 End stage renal disease; E78.5 Hyperlipidemia, unspecified; I25.10 Atherosclerotic heart disease of native coronary artery without angina pectoris; E11.69 Type 2 diabetes mellitus with other specified complication; M86.8X7 Other osteomyelitis, ankle and foot; K21.9 Gastro-esophageal reflux disease without esophagitis; Z86.14 Personal history of Methicillin resistant Staphylococcus aureus infection; Z99.2 Dependence on renal dialysis; Z93.0 Tracheostomy status; Z95.820 Peripheral vascular angioplasty status with implants and grafts; Z86.73 Personal history of transient ischemic attack (TIA), and cerebral infarction without residual deficits
CPT/HCPCS: 11042

== ENCOUNTER → 2020-07-29 | Outpatient (CLI) | payer MEDICARE ==
[~2020-07-29] MED LIST changes: +FERR324T23 PO; -FERR325T16 PO
== END | disposition home or self-care (01) ==
LOC: WOUND 09:55
PROVIDERS: ATTEND Internal Medicine
DX: E11.621 Type 2 diabetes mellitus with foot ulcer (principal); I70.235 Atherosclerosis of native arteries of right leg with ulceration of other part of foot; L97.511 Non-pressure chronic ulcer of other part of right foot limited to breakdown of skin; E11.65 Type 2 diabetes mellitus with hyperglycemia; E11.51 Type 2 diabetes mellitus with diabetic peripheral angiopathy without gangrene; E11.40 Type 2 diabetes mellitus with diabetic neuropathy, unspecified; L84 Corns and callosities; I70.212 Atherosclerosis of native arteries of extremities with intermittent claudication, left leg; E11.319 Type 2 diabetes mellitus with unspecified diabetic retinopathy without macular edema; E11.21 Type 2 diabetes mellitus with diabetic nephropathy; E11.22 Type 2 diabetes mellitus with diabetic chronic kidney disease; I13.2 Hypertensive heart and chronic kidney disease with heart failure and with stage 5 chronic kidney disease, or end stage renal disease; I50.30 Unspecified diastolic (congestive) heart failure; N18.6 End stage renal disease; E78.5 Hyperlipidemia, unspecified; I25.10 Atherosclerotic heart disease of native coronary artery without angina pectoris; E11.69 Type 2 diabetes mellitus with other specified complication; M86.8X7 Other osteomyelitis, ankle and foot; K21.9 Gastro-esophageal reflux disease without esophagitis; Z86.14 Personal history of Methicillin resistant Staphylococcus aureus infection; Z99.2 Dependence on renal dialysis; Z93.0 Tracheostomy status; Z95.820 Peripheral vascular angioplasty status with implants and grafts; Z86.73 Personal history of transient ischemic attack (TIA), and cerebral infarction without residual deficits
CPT/HCPCS: G0463

== ENCOUNTER → 2020-08-26 | Outpatient (CLI) | payer MEDICARE ==
[~2020-08-26] MED LIST changes: -VANC1VIA3 IV; +VANC1VIA36 IV
== END | disposition home or self-care (01) ==
LOC: CVU 15:28
PROVIDERS: ATTEND Internal Medicine Cardiovascular Disease
DX: I08.8 Other rheumatic multiple valve diseases (principal); I11.9 Hypertensive heart disease without heart failure; I65.21 Occlusion and stenosis of right carotid artery
CPT/HCPCS: 93306

== ENCOUNTER 2020-10-14 06:04 | Emergency (ER) | payer MEDICARE ==
[~2020-10-14] VITALS: Ht 167.6 cm; Wt 76.0 kg
--- NOTE | 2020-10-14 06:22 | NUR ---
PT PRESENTS TO ER FOR LEFT FOOT WOUND, PT A/OX4, PT STATES SHE WENT TO HER DAY CARE AIDE ON THE FOR A CALLOUS REMOVAL AND THE DAY CARE AIDE FOUND A PEBBE LODGED IN HER FOOT, DAY CARE AIDE REMOVED PEBBLE AND GAVE PT ABX TO TAKE, THE NEXT DAY PT STATES HER FOOT BECAME RED AND SWOLLLEN, PTS LEFT FOOT IS IN FACT RED, SWOLLEN, AND WARM TO TOUCH, PTS LEFT FOOT HAS WHITE TISSUE ON THE SIDE OF HER GREAT TOE AND UNDER HER FOOT THERE IS A HOLE WHERE THE PEBBLE WAS TAKEN OUT OF, PT IS CURRENTLY TAKING THE ABX BUT STATES SHE HASNT GOTTEN BETTER
--- NOTE | 2020-10-14 06:32 | NUR ---
PT INITIALLY WAS PUT ON DOXYCYCLINE BUT THAT WAS INEFFECTIVE SO PT GOT SWITCHED OVER TO AUGMENTIN AND PT FEELS THAT AUGMENTIN IS NOT EFFECTEVE EITHER
--- NOTE | 2020-10-14 06:45 | NUR ---
REPORT FROM ALINA BYNUM
[2020-10-14 07:02] VITALS: BP 133/111
--- NOTE | 2020-10-14 07:03 | NUR ---
Patient given discharge instructions and they have confirmed that they understand the instructions. Patient ambulatory with steady gait.
== END 2020-10-14 07:04 | disposition home or self-care (01) ==
LOC: ED 06:45
DX: L03.116 Cellulitis of left lower limb (principal); E11.65 Type 2 diabetes mellitus with hyperglycemia; E78.5 Hyperlipidemia, unspecified; I95.9 Hypotension, unspecified; K21.9 Gastro-esophageal reflux disease without esophagitis; I50.9 Heart failure, unspecified; Z86.73 Personal history of transient ischemic attack (TIA), and cerebral infarction without residual deficits
CPT/HCPCS: 99281

== ENCOUNTER → 2020-10-25 | Outpatient (CLI) | payer MEDICARE ==
[~2020-10-25] MED LIST changes: -VITA10004 PO; +VITA100087 PO
== END | disposition home or self-care (01) ==
LOC: CVU 09:26
PROVIDERS: ATTEND Surgery
DX: I70.213 Atherosclerosis of native arteries of extremities with intermittent claudication, bilateral legs (principal); I77.9 Disorder of arteries and arterioles, unspecified; I77.1 Stricture of artery
CPT/HCPCS: 93922; 93925

== ENCOUNTER 2020-12-23 11:32 | Observation (INO) | payer MEDICARE ==
[~2020-12-23] VITALS: Ht 167.6 cm; Wt 75.6 kg
[2020-12-23] MEDS ORDERED: LOSA100T14 PO (12:36)
[2020-12-23] MEDS ORDERED: CHOL10003 PO (12:36)
[2020-12-23] MEDS ORDERED: INSULIN SQ-INSULIN (12:40)
[2020-12-23] MEDS ORDERED: DOXAZOSIN PO (12:40)
[2020-12-23] MEDS ORDERED: HYDR-3343 PO (12:40)
[2020-12-23] MEDS ORDERED: AMLO-150 PO (12:40)
[2020-12-23] MEDS ORDERED: OMEP-110 PO (12:40)
[2020-12-23] MEDS ORDERED: SODIUM CHLORIDE 0.9% 1,000 ML IV SCH (13:00)
[2020-12-23 13:34] LABS: BASOPHILS % (AUTO) 1 % (0-1); EOSINOPHILS % (AUTO) 1 % (1-7); LYMPHOCYTES % (AUTO) 18 % (22-44); MEAN CORPUSCULAR HEMOGLOBIN 29.8 pg (27.0-34.8); MEAN PLATELET VOLUME 8.2 fL (7.4-10.4); MONOCYTES % (AUTO) 6 % (2-9); NEUTROPHILS % (AUTO) 74 % (42-75); PLATELET COUNT 210 x10^3/uL (130-400); RED BLOOD COUNT 3.82 x10^6/uL (3.82-5.3); RED CELL DISTRIBUTION WIDTH 17.1 % (9.6-15.2)
[2020-12-23 13:44] LABS: ANION GAP 10 mmol/L (5-15); CALCIUM 8.9 mg/dL (8.5-10.1); CHLORIDE 101 mmol/L (98-107)
[2020-12-23 13:46] VITALS: BP 185/66
[2020-12-23] MEDS ORDERED: LIDOCAINE 1%, 10ML ONE ×2 (14:04→16:01)
[2020-12-23] MEDS ORDERED: FENTANYL PF 100 MCG/2ML ONE (14:37)
[2020-12-23] MEDS ORDERED: HEPARIN 1,000 UNITS/ML, 10ML ONE (14:37)
[2020-12-23] MEDS ORDERED: FLUMAZENIL 0.1 MG/1 ML, 5ML ONE (14:37)
[2020-12-23] MEDS ORDERED: PROTAMINE SULFATE 10 MG/ML, 25ML ONE (14:37)
[2020-12-23] MEDS ORDERED: MIDAZOLAM 1 MG/ML, 5ML ONE (14:37)
[2020-12-23] MEDS ORDERED: NALOXONE 1 MG/ML, 2ML ONE (14:37)
[2020-12-23] MEDS ORDERED: hydrALAzine 20 MG/ML, 1ML ONE (15:04)
[2020-12-23 18:00] VITALS: BP 166/62
[2020-12-23] MEDS ORDERED: HYDROcodone/APAP 5/325 TABLET PO PRN (18:00)
[2020-12-23] MEDS ORDERED: ONDANSETRON 2MG/ML, 2ML IVPush PRN (18:00)
[2020-12-23] MEDS ORDERED: hydrALAzine 20 MG/ML, 1ML IV PRN (18:00)
[2020-12-23] MEDS ORDERED: DIPHENHYDRAMINE 50 MG/ML, 1ML IVPush PRN (18:00)
[2020-12-23] MEDS: DOXAZOSIN 2MG TABLET PO SCH (20:02)
[2020-12-23 20:03] VITALS: BP 158/68
[2020-12-23] MEDS: HEPARIN 5,000 UNITS/ML, 1ML SQ SCH (20:03)
[2020-12-24 00:05] VITALS: BP 139/56
[2020-12-24] MEDS: HEPARIN 5,000 UNITS/ML, 1ML SQ SCH ×2 (04:00→11:52)
[2020-12-24 04:01] VITALS: BP 164/67
[2020-12-24] MEDS ORDERED: LABETALOL 100 MG TABLET PO SCH (06:00)
[2020-12-24] MEDS ORDERED: OMEPRAZOLE 20 MG CAPSULE.DR PO SCH (06:00)
[2020-12-24 07:31] VITALS: BP 165/66
[2020-12-24] MEDS: DOXAZOSIN 2MG TABLET PO SCH (08:50)
[2020-12-24] MEDS ORDERED: ASCORBIC ACID 500 MG TABLET PO SCH (09:00)
[2020-12-24] MEDS ORDERED: LOSARTAN 100 MG TAB PO SCH (09:00)
[2020-12-24] MEDS ORDERED: AMLODIPINE 5 MG TABLET PO SCH (09:00)
[2020-12-24] MEDS ORDERED: CLOPIDOGREL 75 MG TABLET PO SCH (09:00)
[2020-12-24 13:30] VITALS: BP 135/84
[2020-12-24] MEDS ORDERED: ATORVASTATIN 40 MG TABLET PO SCH (21:00)
== END 2020-12-24 16:20 | disposition home or self-care (01) ==
LOC: OUT 11:32 → 4NE 17:44 → OUT 23:18 → 4NE 23:19
PROVIDERS: ADMIT Surgery; ATTEND Surgery
DX: I77.9 Disorder of arteries and arterioles, unspecified (principal); I77.1 Stricture of artery; I73.9 Peripheral vascular disease, unspecified; I13.2 Hypertensive heart and chronic kidney disease with heart failure and with stage 5 chronic kidney disease, or end stage renal disease; E11.22 Type 2 diabetes mellitus with diabetic chronic kidney disease; I50.9 Heart failure, unspecified; N18.6 End stage renal disease; D63.1 Anemia in chronic kidney disease; E11.621 Type 2 diabetes mellitus with foot ulcer; L97.529 Non-pressure chronic ulcer of other part of left foot with unspecified severity; E11.51 Type 2 diabetes mellitus with diabetic peripheral angiopathy without gangrene; E78.5 Hyperlipidemia, unspecified; K21.9 Gastro-esophageal reflux disease without esophagitis; M89.8X9 Other specified disorders of bone, unspecified site; I25.10 Atherosclerotic heart disease of native coronary artery without angina pectoris; Z86.73 Personal history of transient ischemic attack (TIA), and cerebral infarction without residual deficits; Z99.2 Dependence on renal dialysis; Z86.14 Personal history of Methicillin resistant Staphylococcus aureus infection; Z79.899 Other long term (current) drug therapy
CPT/HCPCS: 37225; 37229; 75630; 80048; 82962; 85025; 96361; 96372; 96374; C1714; C1725; C1760; C1769; C1894; C2623; G0378; J0360; J1644; J2250; J2720; J3010; J3490; J7030; J2310